=== PATIENT | female | born 1960 | race Caucasian/White ===

== ENCOUNTER 2020-06-16 07:49 | Day surgery (SDC) | payer OTHER ==
--- OUTSIDE RECORDS SUMMARY | 2020-06-09 13:49 | XMS ---
:1960 Author Organization [facility] Team Providers Name Role Phone Ringstad, Andree Unavailable Unavailable Ringstad, Andree Unavailable Unavailable Ringstad, Andree Unavailable Unavailable Ringstad, Andree Unavailable Unavailable Ringstad, Andree Unavailable Unavailable Ringstad, Andree Unavailable Unavailable Ringstad, Andree Unavailable Unavailable Ringstad, Andree Unavailable Unavailable Ringstad, Andree Unavailable Unavailable Ringstad, Andree Unavailable Unavailable Ringstad, Andree Unavailable Unavailable Daniel Cuba Unavailable [phone] ED STAFF PHYSICIAN, STAFF Unavailable Unavailable MD LIANA RAI Unavailable MD LIANA RAI Unavailable MD LIANA RAI Unavailable MD LIANA RAI Unavailable MD LIANA RAI Unavailable ED STAFF ROSCOE ARENAS Unavailable Unavailable Coloka-Kump, Rodika DO Unavailable Unavailable Coloka-Kump, Rodika DO Unavailable Unavailable Coloka-Kump, Rodika DO Unavailable Unavailable Coloka-Kump, Rodika DO Unavailable Unavailable Coloka-Kump, Rodika DO Unavailable Unavailable Coloka-Kump, Rodika DO Unavailable Unavailable Coloka-Kump, Rodika DO Unavailable Unavailable Coloka-Kump, Rodika DO Unavailable Unavailable Coloka-Kump, Rodika DO Unavailable Unavailable Coloka-Kump, Rodika DO Unavailable Unavailable Coloka-Kump, Rodika DO Unavailable Unavailable Coloka-Kump, Rodika DO Unavailable Unavailable Coloka-Kump, Rodika DO Unavailable Unavailable Coloka-Kump, Rodika DO Unavailable Unavailable Coloka-Kump, Rodika DO Unavailable Unavailable Coloka-Kump, Rodika DO Unavailable Unavailable Coloka-Kump, Rodika DO Unavailable Unavailable Z UNKNOWN PHYSICIAN, SUMIR Unavailable Unavailable Ringstad, Andree Unavailable Unavailable Ringstad, Andree Unavailable Unavailable Ringstad, Andree Unavailable Unavailable Ringstad, Andree Unavailable Unavailable Ringstad, Andree Unavailable Unavailable Ringstad, Andree Unavailable Unavailable Ringstad, Andree Unavailable Unavailable Ringstad, Andree Unavailable Unavailable Ringstad, Andree Unavailable Unavailable Ringstad, Andree Unavailable Unavailable Ringstad, Andree Unavailable Unavailable PRZECHODZKA HARDY, HARDY Unavailable Unavailable MOHSEN, JOAQUÍN DO Unavailable Unavailable MOHSEN, JOAQUÍN DO Unavailable Unavailable MOHSEN, JOAQUÍN DO Unavailable Unavailable MOHSEN, JOAQUÍN DO Unavailable Unavailable Aszalos, Lisa Lexi Unavailable Unavailable Aszalos, Lexi Unavailable Unavailable Aszalos, Lexi Unavailable Unavailable Aszalos, Lexi Unavailable Unavailable Aszalos, Lexi Unavailable Unavailable Aszalos, Lexi Unavailable Unavailable Aszalos, Lexi Unavailable Unavailable Aszalos, Lexi Unavailable Unavailable Aszalos, Lexi Unavailable Unavailable Carol Smith MD Unavailable Unavailable Carol Smith MD Unavailable Unavailable Carol Smith MD Unavailable Unavailable Carol Smith MD Unavailable Unavailable Carol Smith MD Unavailable Unavailable Carol Smith MD Unavailable Unavailable Carol Smith MD Unavailable Unavailable Carol Smith MD Unavailable Unavailable Carol Smith MD Unavailable Unavailable Carol Smith MD Unavailable Unavailable Carol Smith MD Unavailable Unavailable Carol Smith MD Unavailable Unavailable Carol Smith MD Unavailable Unavailable Carol Smith MD Unavailable Unavailable Carol Smith MD Unavailable Unavailable OBINNA EZEQUIEL Unavailable Unavailable Sunitha Unavailable [phone] [place] Unavailable [phone] Aszalos, Lexi Unavailable Unavailable Aszalos, Lexi Unavailable Unavailable Aszalos, Lexi Unavailable Unavailable Aszalos, Lexi Unavailable Unavailable Aszalos, Lexi Unavailable Unavailable Aszalos, Lexi Unavailable Unavailable Aszalos, Lexi Unavailable Unavailable Aszalos, Lexi Unavailable Unavailable Aszalos, Lexi Unavailable Unavailable Luis, Carol MD Unavailable Unavailable Luis, Carol MD Unavailable Unavailable Luis, Carol MD Unavailable Unavailable Luis, Carol MD Unavailable Unavailable Luis, Carol MD Unavailable Unavailable Luis, Carol MD Unavailable Unavailable Luis, Carol MD Unavailable Unavailable Luis, Carol MD Unavailable Unavailable Luis, Carol MD Unavailable Unavailable Luis, Carol MD Unavailable Unavailable Luis, Carol MD Unavailable Unavailable Luis, Carol MD Unavailable Unavailable Luis, Carol MD Unavailable Unavailable Luis, Carol MD Unavailable Unavailable Luis, Carol MD Unavailable Unavailable ZUNASSIGNED Unavailable Unavailable ZUNASSIGNED@, Unavailable Unavailable Re-disclosure Warning The records that you are about to access may contain information from federally- assisted alcohol or drug abuse programs. If such information is present, then the following federally mandated warning applies: This information has been disclosed to you from records protected by federal confidentiality rules (42 CFR part 2). The federal rules prohibit you from making any further disclosure of this information unless further disclosure is expressly permitted by the written consent of the person to whom it pertains or as otherwise permitted by 42 CFR part 2. A general authorization for the release of medical or other information is NOT sufficient for this purpose. The Federal rules restrict any use of the information to criminally investigate or prosecute any alcohol or drug abuse patient.The records that you are about to access may contain highly sensitive health information, the redisclosure of which is protected by Article 27-F of the [facility] Public Health law. If you continue you may haveaccess to information: Regarding HIV / AIDS; Provided by facilities licensed or operated by the [facility] Office of Mental Health; or Provided by the [facility] Office for People With Developmental Disabilities. If such information is present, then the following [facility] mandated warning applies: This information has been disclosed to you from confidential records which are protected by state law. State law prohibits you from making any further disclosure of this information without the specific written consent of the person to whom it pertains, or as otherwise permitted by law. Any unauthorized further disclosure in violation of state law may result in a fine or care home sentence or both. A general authorization for the release of medical or other information is NOT sufficient authorization for further disclosure. Family History Family Member Family Member Family Member Date of Description Data Source(s) Name Gender Status Status Unknown Female Problem 04/08/2013 ELIA ([facility] ([facility]) 12:00:00 AM Health system EDT Center) Encounters Encounter Providers Location Date Indications Data Source(s ) Outpatient Attender: 06[facility]14/2020 [facility] ZUNASSIGNEDAdmitt 10:44:00 Medical Center er: AM EDT ZUNASSIGNEDReferr er: [id number] ZUNASSIGNED@, Outpatient Admitter: [id number] 06/14/2020 [facility] MONTALVOIGNED@,Refe 12:00:[address] [facility] rrer: [id number] AM EDT ZUNASSIGNED@, Attender: [facility] 05/29/2020 10:03:00 AM EDT Attender: [facility] 01:07:00 [facility] Medic al PM EDT - Center) 05/24/2020 01:07:00 PM EDT Outpatient Attender: 05/23/2020 [facility] KATIAIGNEDAdmitt 09:03:00 Medical Center er: AM EDT ZUNASSIGNEDReferr er: [id number] ZUNASSIGNED@, Outpatient Attender: Jennifer Briones 05/23/2020 [facility] 08:38:[address] [facility] MDAttender: AM EDT Rodika Coloka-Kump DOAdmitter: Jennifer Smith MDReferrer: Rodika Coloka-Kump DO OutpatientOFFICE/ Attender: [facility] V[facility], [facility] 08:38:00 [facility] EST AM EDT - Center) 05/23/2020 08:38:00 AM EDT Outpatient Admitter: [id number] 05/23/2020 Betty ale CHRISTIAN@,Refe 12:00:00 Medical Center rrer: [id number] AM EDT ZUNASSIGNED@, Outpatient Attender: Lisa Briones 04/10/2020 Toledoharika meza AszalosAdmitter: 09:49:00 Medical Center [facility] AM EDT AszalosReferrer: Lisa Bay OutpatientOFFICE/ Attender: [facility] 04/10/2020 [facility] ([facility] OUTPATIENT VISIT, [facility] 09:49:00 [facility] Medical EST AM EDT - Center) 04/10/2020 09:49:00 AM EDT Outpatient 04/10/2020 [facility] 08:55:00 Medical [place] AM EDT Outpatient 04/10/2020 [facility] 12:00:00 Medical [place] AM EDT Outpatient 04/05/2020 [facility] 11:48:00 Medical [place] AM EDT Outpatient Attender: Na Briones 04/05/2020 [facility]uilera Coloka-Kump 08:24:00 Medical Fozia barbosa DOAdmitter: AM EDT Na Coloka-Kump DOReferrer: Na Coloka-Kump DO OutpatientOFFICE/ Attender: [facility] 04/05/2020 [facility] ([facility] OUTPATIENT VISIT, [facility] 08:24:00 [facility] Medical EST AM EDT - Center) 04/05/2020 08:24:00 AM EDT Outpatient 04/05/2020 [facility] 12:00:00 Medical [place] AM EDT Outpatient Attender: HARDY Briones 02/25/2020 [facility]uilera PRZECHODPEE 08:21:00 Medical Fozia barbosa DANUTAAdmitter: AM EDT HARDY PRZECHODZKA DANUTAReferrer: GERI COKER PHYSICIAN Attender: [facility] 09/28/2019 NEXT N ([facility] 12:06:00 [facility] PM EST - Center) 09/28/2019 12:06:00 PM EST Outpatient Attender: HARDY Briones 09/10/2019 [facility] Betty aguilera PRZECHODPEE 09:00:00 Medical Cente r DANUTAAdmitter: AM EST HARDY PRZECHODZKA DANUTAReferrer: JOAQUÍN CONNOLLY DO Attender: [facility] 08/26/2019 ELIA N ([facility] 11:28:00 [facility] AM EST - Center) 08/26/2019 11:28:00 AM EST Outpatient Attender: HARDY Briones 08/26/2019 [facility] Betty jimenes MONE 11:10:00 Medical [facility] r DANUTAAdmitter: AM EST HARDY MONE DANUTAReferrer: JOAQUÍN CONNOLLY DO Outpatient Attender: EZEQUIEL Briones 08/17/2019 [facility] Guicho bruce OBINNA 02:12:00 Medical Center MINALAdmitter: PM EST EZEQUIEL OBINNA MINALReferrer: EZEQUIEL YEBOAH EZEQUIEL Attender: [facility] 08/17/2019 NEXT GEN ([facility] 02:12:00 [facility] PM EST - Center) 08/17/2019 02:12:00 PM EST Outpatient 08/17/2019 [facility] 11:18:00 Medical [place] AM EST Outpatient 08/17/2019 [facility] 12:00:00 Medical [place] AM EST Attender: [facility] 08/13/2019 [facility] EST - Center) 08/13/2019 11:30:00 AM EST Emergency Attender: ROSCOE Briones 08/10/2019 [facility] ED STAFF 05:00:00 [facility] PHYSICIANAttender PM EST - : STAFF ED STAFF 08/10/2019 PHYSICIANAdmitter 08:39:00 : ROSCOE ED STAFF PM EST PHYSICIAN Patient discharged. Outpatient 08/10/2019 [facility] 03:54:00 PM EST Medical C enter Outpatient 08/10/2019 [facility] 12:00:00 AM EST Medical C enter Attender: [facility] 07/16/2019 NEXTGE N ([facility] PR[facility]O [place] 03:13:00 PM EST [facility] 07/16/2019 Center) 03:13:00 PM EST Attender: [facility] 05/13/2019 NEXTGE N ([facility] [place] 09:53:00 AM EDT [facility] 05/13/2019 Center) 09:53:00 AM EDT Attender: [facility] 05/05/2019 NEXTGE N ([facility] [place] 09:42:00 AM EDT [facility] 05/05/2019 Center) 09:42:00 AM EDT Attender: [facility] 04/29/2019 NEXTGEN (Sa int [facility] 04:43:00 PM EDT - [facility] 04/29/2019 Center) 04:43:00 PM EDT Outpatient Attender: H 04/27/2019 [facility] Andree 02:33:00 PM EDT Medical C enter RingstadAdmitter: Andree Maganaeferrer: Andree Bernardo OutpatientOFFICE/OU Attender: [facility] 04/27/2019 NEXTGEN ([facility] TPATIENT VISIT, [facility] Center 02:33:00 PM EDT [facility] 04/27/2019 Center) 02:33:00 PM EDT Outpatient 04/27/2019 [facility] 09:53:00 AM EDT Medical C enter Outpatient 04/27/2019 [facility] 12:00:00 AM EDT Medical C enter Emergency H 04/24/2019 [facility] 09:03:00 AM EDT - [facility] 04/24/2019 02:50:00 PM EDT Patient discharged. 04/24/2019 12:00:00 AM EDT - 013 12:00:00 [facility] AM EST Immunizations Vaccine Date Status Description Data Source(s) New in 2011. IIV4 05/23/2020 completed Influenza, Injectable, NEXTGEN ([facility] 12:00:00 AM EDT Quadrivalent [facility]) Source: New Immunization Record pneumococcal 04/10/2020 completed Adult Pneumococcal NEXTGEN ( [facility] polysaccharide PPV23 12:00:00 AM EDT [facility]) Source: New Immunization Record Medications Medication Brand Start Product Dose Route Administrative [facility] Indications Reaction Description Data Name Date Form Instructions Instructions Source(s) Ibuprofen IBUPRO 05/29/ active TAKE 1 NE XTGEN 400 MG Oral FEN 2020 TABLET BY (Sa int Tablet 400MG 12:00: MOUTH EVERY Gu[facility] ephs IBUPROFEN TABLET 00 AM 4 TO 6 HOURS Medical 400MG S EDT NEEDED Center) TABLETS Ibuprofen IBUPRO 05/29/ complet TAKE 1 N EXTGEN 400 MG Oral FEN 2020 ed TABLET BY (Sa int Tablet 400MG 12:00: MOUTH EVERY Guicho ephs IBUPROFEN TABLET 00 AM 4 TO 6 HOURS Medical 400MG S EDT NEEDED Center) TABLETS Medication administered onsite Ibuprofen 400 ibuprofen 400 05/25/2020 1.00 ORAL completed take 1 NEXTGEN MG Oral mg tablet 12:00:00 AM {tablet} t ablet by ( Tablet EDT oral Marly ibuprofen 400 route Medic al mg tablet every 4 - Cente r) 6 hours as needed Meclizine meclizine 25 05/24/2020 1.00 ORAL active take 1 NEXTGEN Hydrochloride mg tablet 12:00:00 AM {tablet} tablet by ([facility] 25 MG Oral EDT oral Marly Tablet route 3 Medical meclizine 25 times Center ) mg tablet every day as needed Chlorthalidon chlorthalidon 05/24/2020 active TAKE 1 NEXTGEN e 25 MG Oral e 25 mg 12:00:00 AM TA BLET ( Tablet tablet EDT (25MG) BY Clement shabazz chlorthalidon ORAL Medica l e 25 mg ROUTE Center) tablet EVERY DAY Lisinopril 10 lisinopril 10 05/24/2020 1.00 ORAL active take 1 NEXTGEN MG Oral mg tablet 12:00:00 AM {tablet} t ablet by ( Tablet EDT oral Marly lisinopril 10 route Medic al mg tablet every day Cente r) Aspirin 81 MG aspirin 81 mg 05/24/2020 1.00 ORAL active take 1 NEXTGEN Delayed tablet,delaye 12:00:00 AM {tablet} tablet by ([facility] Release Oral d release EDT oral Betty sephs Tablet route Medical aspirin 81 mg every day C enter) tablet,delaye d release Shingrix (PF) 0.5 ML 04/10/2020 0.50 mL INTRAMU active 0.5 ML NEXTGEN 50 mcg/0.5 mL varicella 12:00:00 AM SCULAR varicella ( intramuscular zoster virus EDT zos ter Marly suspension, glycoprotein virus Medical kit E, glycoprot Center) recombinant ein E, 0.1 MG/ML recombina Injection nt 0.1 MG/ML Injection [Shingrix ] Chlorthalidon chlorthalidon 04/05/2020 completed TAKE 1 NEXTGEN e 25 MG Oral e 25 mg 12:00:00 AM TA BLET (Saint Tablet tablet EDT (25MG) BY Clement shabazz chlorthalidon ORAL Medica l e 25 mg ROUTE Center) tablet EVERY DAY Lisinopril 10 lisinopril 10 04/05/2020 1.00 ORAL completed take 1 NEXTGEN MG Oral mg tablet 12:00:00 AM {tablet} t ablet by (Saint Tablet EDT oral Marly lisinopril 10 route Medic al mg tablet every day Cente r) Meclizine meclizine 25 04/05/2020 1.00 ORAL completed take 1 NEXTGEN Hydrochloride mg tablet 12:00:00 AM {tablet} tablet by ([facility] 25 MG Oral EDT oral [facility] [place] [facility] mg tablet every day as needed Enalapril enalapril 04/27/2019 completed TAKE 1 NEXTGEN Maleate 10 MG maleate 10 mg 12:00:00 AM TABLET ([facility] Oral Tablet tablet EDT (10MG) BY Lory dunn enalapril ORAL Medical maleate 10 mg ROUTE Cente r) tablet EVERY DAY Chlorthalidon chlorthalidon 04/27/2019 completed TAKE 1 NEXTGEN e 25 MG Oral e 25 mg 12:00:00 AM TA BLET (Saint Tablet tablet EDT (25MG) BY Clement shabazz chlorthalidon ORAL Medica l e 25 mg ROUTE Center) tablet EVERY DAY Meclizine meclizine 04/27/2019 1 ORAL completed take 1 NEXTGEN Hydrochloride 12.5 mg 12:00:00 AM {tablet} tablet by ([facility] 12.5 MG Oral tablet EDT oral Patrick hs Tablet route [facility] [place]) 12.5 mg every day tablet as needed Meclizine meclizine 01/21/2019 2.00 ORAL completed take 2 NEXTGEN Hydrochloride 12.5 mg 12:00:00 AM {tbl} tablet by ([facility] 12.5 MG Oral tablet EDT oral Patrick hs [facility] 12.5 mg every day tablet as needed Chlorthalidon chlorthalidon 08/27/2018 completed TAKE 1 NEXTGEN e 25 MG Oral e 25 mg 12:00:00 AM TA BLET ([facility] Tablet tablet EST (25MG) BY Clement shabazz chlorthalidon ORAL Medica l e 25 mg ROUTE Center) tablet EVERY DAY Aspirin 81 MG aspirin 81 mg 08/27/2018 1.00 ORAL completed take 1 NEXTGEN Delayed tablet,delaye 12:00:00 AM {tablet} tablet by ([facility] Release Oral d release EST oral Betty sephs Tablet route Medical aspirin 81 mg every day C enter) tablet,delaye d release Enalapril enalapril 08/27/2018 completed TAKE 1 NEXTGEN Maleate 10 MG maleate 10 mg 12:00:00 AM TABLET ( Oral Tablet tablet EST (10MG) BY Lory dunn enalapril ORAL Medical maleate 10 mg ROUTE Cente r) tablet EVERY DAY Ibuprofen 400 ibuprofen 400 03/30/2018 1.00 ORAL completed take 1 NEXTGEN MG Oral mg tablet 12:00:00 AM {tablet} t ablet by (Saint Tablet EDT oral Marly ibuprofen 400 route Medic al mg tablet every 4 - Cente r) 6 hours as needed Insurance Providers Payer name Policy type Policy ID Covered Covered alliance party's Policy P mike / Coverage alliance party ID relationship to Siegel Inf ormation type siegel AETNA [id number] self [id number] LOCAL [id number] O [id number] 01 [id number] GREAT [id number] SP [id number] [facility] [id number] O [id number] BENEFITS FUND STRATEGIC O [id number] COMP KAYLEEN O NA 01 NA RESIDENTIAL LOCAL [id number] O [id number] 01 [id number] O [id number] 01 [id number] BENEFITS FUND LOCAL 1199 O [id number] 01 [id number] Dental [id number] S [id number] [place]-I PPO / Preffered Plus [id number] SEIU [id number] S [id number] Home Care Benefit Fund Problems, Conditions, and Diagnoses Code Display Name Description Problem Type Effective Data Dates Source(s) M25.511 Pain in right PAIN IN RIGHT Diagnosis 05/23/2020 [facility] jimeness shoulder SHOULDER 08:38:00 AM Medical EDT Center Z23 Encounter for ENCOUNTER FOR Diagnosis 05/23/2020 [facility] jimeness immunization IMMUNIZATION 08:38:00 AM Medical EDT Center Z12.11 Encounter for ENCOUNTER FOR Diagnosis 05/23/2020 [facility] jimeness screening for SCREENING FOR 08:38:00 AM Medical malignant neoplasm MALIGNANT NEOPLASM EDT Center of colon OF COLON E11.9 Type 2 diabetes TYPE 2 DIABETES Diagnosis 05/23/2020 [facility] mellitus without MELLITUS WITHOUT 08:38:00 AM M edical complications COMPLICATIONS EDT Center I10 Essential ESSENTIAL Diagnosis 05/23/2020 [facility] (primary) (PRIMARY) 08:38:00 AM Medical hypertension HYPERTENSION EDT Center Z12.31 Encounter for ENCNTR SCREEN Diagnosis 05/23/2020 [facility] aguilera screening MAMMOGRAM FOR 08:38:00 AM Medical mammogram for MALIGNANT NEOPLASM EDT José Miguel ter malignant neoplasm OF BREAST of breast E66.9 Obesity, OBESITY, Diagnosis 04/10/2020 [facility] unspecified UNSPECIFIED 09:49:00 AM Medical EDT Center R42 Dizziness and DIZZINESS AND Diagnosis 04/10/2020 [facility] jimeness giddiness GIDDINESS 09:49:00 AM Medical EDT Center Z71.89 Other specified OTHER SPECIFIED Diagnosis 04/05/2020 [facility] counseling COUNSELING 08:24:00 AM Medical EDT Center M54.42 Lumbago with LUMBAGO WITH Diagnosis 02/25/2020 [facility] phs sciatica, left SCIATICA, LEFT 08:21:00 AM Medic al side SIDE EDT Center M54.41 Lumbago with LUMBAGO WITH Diagnosis 02/25/2020 [facility] ph[facility] sciatica, right SCIATICA, RIGHT 08:21:00 AM Med ical side SIDE EDT Center M54.5 Low back pain LOW BACK PAIN Diagnosis 02/25/2020 [facility] jimeness 08:21:00 AM Medical EDT Center Y99.0 Civilian activity CIVILIAN ACTIVITY Diagnosis 08/10/2019 [facility] done for income or DONE FOR INCOME OR 05:00:00 PM Medical pay PAY EST Center Y92.69 Other specified OTH INDUSTRIAL AND Diagnosis 08/10/2019 S ai Marly industrial and CONSTRUCTION AREA 05:00:00 PM [facility] construction area PLACE EST Center as the place of occurrence of the external cause Y93.9 Activity, ACTIVITY, Diagnosis 08/10/2019 [facility] unspecified UNSPECIFIED 05:00:00 PM Medical EST Center X58.XXXA Exposure to other EXPOSURE TO OTHER Diagnosis 08/10/2019 [facility] Vaughans specified factors, SPECIFIED FACTORS, 05:00:00 PM Medical initial encounter INITIAL ENCOUNTER EST Center S46.911A Strain of STRAIN UNSP Diagnosis 08/10/2019 [facility] unspecified MUSC/FASC/TEND AT 05:00:00 PM Medic al muscle, fascia and SHLDR/UP ARM, EST José Miguel ter tendon at shoulder RIGHT ARM, INIT and upper arm level, right arm, initial encounter M25.519 Pain in PAIN IN Diagnosis 08/10/2019 [facility] unspecified UNSPECIFIED 05:00:00 PM Medical shoulder SHOULDER EST Center Z71.3 Dietary counseling DIETARY COUNSELING Diagnosis 9 [facility] Marly and surveillance AND SURVEILLANCE 02:33:00 PM edical EDT Center R73.03 Prediabetes PREDIABETES Diagnosis 04/27/2019 [facility] Vaughan s 02:33:00 PM Medical EDT Center Z68.33 Body mass index BODY MASS INDEX Diagnosis 04/27/2019 Lalitatrisha Luke (BMI) 33.0-33.9, (BMI) 33.0-33.9, 02:33:00 PM edical adult ADULT EDT Center A88.1 Epidemic vertigo EPIDEMIC VERTIGO Diagnosis 04/24/2019 Sa haro Malry 09:03:00 AM Medical EDT Center R11.0 Nausea NAUSEA Diagnosis 04/24/2019 [facility] 09:03:00 AM Medical EDT Center Surgeries/Procedures Procedure Description Date Indications Data Source(s) OFFICE/OUTPATIENT VISIT, 05/23/2020 NEX TGEN ([facility] EST 12:00:00 AM EDT [facility] - 05/23/2020 Center) 12:00:00 AM EDT Influenza, Injectable, 3 05/23/2020 NEX TGEN ([facility] Yrs Or Older 12:00:00 AM EDT [facility] - 05/23/2020 [place]) 12:00:00 AM EDT Immunization 05/23/2020 NEXTGEN ([facility] Administration 12:00:00 AM EDT [facility] - 05/23/2020 Center) 12:00:00 AM EDT OFFICE/OUTPATIENT VISIT, 04/10/2020 NEX TGEN ([facility] EST 12:00:00 AM EDT [facility] - 04/10/2020 Center) 12:00:00 AM EDT Pneumonia Vaccine 04/10/2020 NEXTGEN (S aint 12:00:00 AM EDT [facility] - 04/10/2020 [place]) 12:00:00 AM EDT Immunization 04/10/2020 NEXTGEN ([facility] Administration 12:00:00 AM EDT [facility] dical - 04/10/2020 [place]) 12:00:00 AM EDT OFFICE/OUTPATIENT VISIT, 04/05/2020 NEX TGEN ([facility] EST 12:00:00 AM EDT [facility] - 04/05/2020 Center) 12:00:00 AM EDT ROUTINE VENIPUNCTURE 04/05/2020 NEXTGEN ([facility] 12:00:00 AM EDT [facility] - 04/05/2020 [place]) 12:00:00 AM EDT OFFICE/OUTPATIENT VISIT, 04/27/2019 NEX TGEN ([facility] EST 12:00:00 AM EDT [facility] - 04/27/2019 [place]) 12:00:00 AM EDT Results ID Date Data Source Liver 05/23/2020 11:01:00 AM EDT [facility] [id number] Name Value Range Interpretation Description Data Sup porting Code Source(s) Document(s ) Alkaline 38-126 Above high <content [facility] phosphatase normal styleCode="Bold"> [facility] [Enzymatic Alkaline Medical activity/volume] Phosphatase (ALP) Cente r in Serum or Plasma </content>128 IU/L H<content styleCode="Italic s"> (38-126 IU/L)</content> Albumin 3.5-5.0 <content [facility] [Mass/volume] in styleCode="Bold"> [facility] hs Serum or Plasma Albumin Medical </content>4.4 Center G/DL<content styleCode="Italic s"> (3.5-5.0 G/DL)</content> Alanine 7-30 Above high <content [facility] aminotransferase normal styleCode="Bold"> [facility] [Enzymatic Alanine Medical activity/volume] Aminotransferase Center in Serum or Plasma (ALT) </content>53 IU/L H<content styleCode="Italic s"> (7-30 IU/L)</content> Aspartate 14-36 Above high <content [facility] aminotransferase normal styleCode="Bold"> [facility] [Enzymatic Aspartate Medical activity/volume] Aminotransferase Center in Serum or Plasma (AST) </content>37 IU/L H<content styleCode="Italic s"> (14-36 IU/L)</content> Bilirubin.total 0.2-1.3 <content [facility] [Mass/volume] in styleCode="Bold"> [facility] hs Serum or Plasma Bilirubin Total Medical </content>0.3 Center MG/DL<content styleCode="Italic s"> (0.2-1.3 MG/DL)</content> ID Date Data Source HematologyRou.[id number] 05/23/2020 11:01:00 AM EDT [facility] 0400 Name Value Range Interpretation Description Data Sup porting Code Source(s) Document(s ) Hematocrit 36.0-46. <content [facility] [Volume 0 styleCode="Bold Marly Fraction] of ">Hematocrit Medical Blood by </content>42.6 Center Automated count %<content styleCode="Ital ics"> (36.0-46.0 %)</content> Leukocytes 4.4-11.0 <content [facility] [#/volume] in styleCode="Bold Marly Blood by ">White Blood Medical Automated count Cell Count Center </content>9.01 KCUMM<content styleCode="Ital ics"> (4.4-11.0 KCUMM)</content > Erythrocytes 4.0-5.1 <content [facility] [#/volume] in styleCode="Bold Marly Blood by ">Red Blood Medical Automated count Cell Count Center </content>4.62 MCUMM<content styleCode="Ital ics"> (4.0-5.1 MCUMM)</content > Hemoglobin 12.3-16. <content [facility] [Mass/volume] in 0 styleCode="Bold Marly Blood ">Hemoglobin Medical </content>14.4 Center G/DL<content styleCode="Ital ics"> (12.3-16.0 G/DL)</content> Erythrocyte mean 80.0-100 <content [facility] corpuscular .0 styleCode="Bold Marly volume [Entitic ">Mean Medical volume] by Corpuscular Center Automated count Volume </content>92.2 FL<content styleCode="Ital ics"> (80.0-100.0 FL)</content> Erythrocyte mean 32.0-37. <content [facility] corpuscular 0 styleCode="Bold Marly hemoglobin ">Mean Corpus. Medical concentration Hgb Center [Mass/volume] by Concentration Automated count (MCHC) </content>33.8 G/DL<content styleCode="Ital ics"> (32.0-37.0 G/DL)</content> Erythrocyte 11.5-14. <content [facility] distribution 5 styleCode="Bold Marly width [Ratio] by ">Red Cell Medical Automated count Distribution Center Width </content>13.3 %<content styleCode="Ital ics"> (11.5-14.5 %)</content> Platelet mean 8.0-11.0 <content [facility] volume [Entitic styleCode="Bold Marly volume] in Blood ">Mean Platelet Medical by Automated Volume Center count </content>10.6 FL<content styleCode="Ital ics"> (8.0-11.0 FL)</content> Platelets 130-400 <content [facility] [#/volume] in styleCode="Bold Marly Blood by ">Platelet Medical Automated count Count Center </content>305 KCUMM<content styleCode="Ital ics"> (130-400 KCUMM)</content > Erythrocyte mean 26.0-34. <content [facility] corpuscular 0 styleCode="Bold Marly hemoglobin ">Mean Medical [Entitic mass] Corposcular Center by Automated Hemoglobin count </content>31.2 PG<content styleCode="Ital ics"> (26.0-34.0 PG)</content> UNK 1.6-7.3 <content [facility] styleCode="Bold Marly ">Neutrophil Medical Count Center </content>5.54 KCUMM<content styleCode="Ital ics"> (1.6-7.3 KCUMM)</content > Monocytes 3.0-10.0 <content [facility] [#/volume] in styleCode="Bold Marly Blood by ">Monocyte Medical Automated count </content>6.5 Center %<content styleCode="Ital ics"> (3.0-10.0 %)</content> UNK 1.0-4.8 <content [facility] styleCode="Bold Marly ">Lymphocyte Medical Count Center </content>2.59 KCUMM<content styleCode="Ital ics"> (1.0-4.8 KCUMM)</content > Neutrophils 36-66 <content [facility] [#/volume] in styleCode="Bold Marly Blood by ">Neutrophil Medical Automated count </content>61.5 Center %<content styleCode="Ital ics"> (36-66 %)</content> Lymphocytes 24.0-44. <content [facility] [#/volume] in 0 styleCode="Bold Marly Blood by ">Lymphocyte Medical Automated count </content>28.7 Center %<content styleCode="Ital ics"> (24.0-44.0 %)</content> Eosinophils 0-5.0 <content [facility] [#/volume] in styleCode="Bold Marly Blood by ">Eosinophil Medical Automated count </content>1.7 Center %<content styleCode="Ital ics"> (0-5.0 %)</content> UNK 0.0-0.6 <content [facility] styleCode="Bold Marly ">Eosinophil Medical Count Center </content>0.15 KCUMM<content styleCode="Ital ics"> (0.0-0.6 KCUMM)</content > UNK 0.2-0.9 <content [facility] styleCode="Bold Marly ">Monocyte Medical Count Center </content>0.59 KCUMM<content styleCode="Ital ics"> (0.2-0.9 KCUMM)</content > Basophils 0.0-1.0 <content [facility] [#/volume] in styleCode="Bold Marly Blood by ">Basophil Medical Automated count </content>1.0 Center %<content styleCode="Ital ics"> (0.0-1.0 %)</content> UNK 0.0 <content [facility] styleCode="Bold Marly ">Nucleated Red Medical Blood Cell Center Count </content>0.00 KCUMM<content styleCode="Ital ics"> (0.0 KCUMM)</content > UNK 0-0.1 <content [facility] styleCode="Bold Marly ">Immature Medical Granulocyte Center Count </content>0.05 KCUMM<content styleCode="Ital ics"> (0-0.1 KCUMM)</content > UNK 0 <content Saint styleCode="Bold Marly ">Nucleated Red Medical Blood Cell Center </content>0.0 /100<content styleCode="Ital ics"> (0 /100)</content> UNK 0.0-0.3 <content Saint styleCode="Bold Amrly ">Basophil Medical Count Center </content>0.09 KCUMM<content styleCode="Ital ics"> (0.0-0.3 KCUMM)</content > UNK < 1 <content Saint styleCode="Bold Marly ">Immature Medical Granulocyte Center Ratio </content>0.6 %<content styleCode="Ital ics"> (< 1 %)</content> ID Date Data Source GFR(Creatinine).[id number] 05/23/2020 11:01:00 AM EDT [facility] 0-0400 Name Value Range Interpretation Code Description Data Diann rce(s) Supporting Document(s ) UNK > 60 <content [facility] styleCode="Bold"> Medical Cent er EGFR </content>79 GFR<content styleCode="Italic s"> (> 60 GFR)</content> ID Date Data Source CHMROUTINECCDA.[id number] 05/23/2020 11:01:00 AM EDT [facility] -0400 Name Value Range Interpretation Description Data Sup porting Code Source(s) Document(s ) UNK 2.3-3.5 <content [facility] styleCode="Bold Medical ">Globulin Center </content>3.1 G/DL<content styleCode="Ital ics"> (2.3-3.5 G/DL)</content> Protein 6.3-8.2 <content [facility] [Mass/volum styleCode="Bold Medical e] in Serum ">Total Protein Center or Plasma </content>7.5 G/DL<content styleCode="Ital ics"> (6.3-8.2 G/DL)</content> UNK >= 1.0 <content [facility] styleCode="Bold Medical ">AG Ratio Center </content>1.4 <content styleCode="Ital ics"> (>= 1.0 )</content> ID Date Data Source [facility].[id number] 05/23/2020 11:01:00 AM EDT [facility] Name Value Range Interpretation Description Data Sup porting Code Source(s) Document(s ) Creatinine 0.5-1.3 <content [facility] [Mass/volume] in styleCode="Bold"> [facility] hs Serum or Plasma Creatinine Medical </content>0.8 Center MG/DL<content styleCode="Italic s"> (0.5-1.3 MG/DL)</content> Potassium 3.5-5.3 <content [facility] [Moles/volume] in styleCode="Bold"> [facility] Serum or Plasma Potassium Medical </content>4.0 Center MEQ/L<content styleCode="Italic s"> (3.5-5.3 MEQ/L)</content> Sodium 137-145 <content [facility] [Moles/volume] in styleCode="Bold"> [facility] Serum or Plasma Sodium Medical </content>138 Center MEQ/L<content styleCode="Italic s"> (137-145 MEQ/L)</content> UNK 7-17 Above high <content [facility] normal styleCode="Bold"> [facility] BUN </content>25 Medical MG/DL H<content Center styleCode="Italic s"> (7-17 MG/DL)</content> Chloride 98-107 <content [facility] [Moles/volume] in styleCode="Bold"> [facility] Serum or Plasma Chloride Medical </content>100 Center MEQ/L<content styleCode="Italic s"> (98-107 MEQ/L)</content> Carbon dioxide, 22-30 Above high <content [facility] total normal styleCode="Bold"> [facility] [Moles/volume] in Carbon Dioxide Medical Serum or Plasma </content>34 Center MEQ/L H<content styleCode="Italic s"> (22-30 MEQ/L)</content> Calcium 8.4-10. Above high <content [facility] [Mass/volume] in 2 normal styleCode="Bold"> [facility] hs Serum or Plasma Calcium Medical </content>10.3 Center MG/DL H<content styleCode="Italic s"> (8.4-10.2 MG/DL)</content> Glucose 74-106 Above high <content [facility] [Mass/volume] in normal styleCode="Bold"> [facility] hs Serum or Plasma Glucose Medical </content>121 Center MG/DL H<content styleCode="Italic s"> (74-106 MG/DL)</content> UNK > 60 <content [facility] styleCode="Bold"> [facility] EGFR </content>79 Medical GFR<content Center styleCode="Italic s"> (> 60 GFR)</content> Alkaline 38-126 Above high <content [facility] phosphatase normal styleCode="Bold"> [facility] [Enzymatic Alkaline Medical activity/volume] Phosphatase (ALP) Cente r in Serum or Plasma </content>128 IU/L H<content styleCode="Italic s"> (38-126 IU/L)</content> Bilirubin.total 0.2-1.3 <content [facility] [Mass/volume] in styleCode="Bold"> [facility] hs Serum or Plasma Bilirubin Total Medical </content>0.3 Center MG/DL<content styleCode="Italic s"> (0.2-1.3 MG/DL)</content> Alanine 7-30 Above high <content [facility] aminotransferase normal styleCode="Bold"> [facility] hs [Enzymatic Alanine Medical activity/volume] Aminotransferase Center in Serum or Plasma (ALT) </content>53 IU/L H<content styleCode="Italic s"> (7-30 IU/L)</content> Aspartate 14-36 Above high <content [facility] aminotransferase normal styleCode="Bold"> [facility] hs [Enzymatic Aspartate Medical activity/volume] Aminotransferase Center in Serum or Plasma (AST) </content>37 IU/L H<content styleCode="Italic s"> (14-36 IU/L)</content> Albumin 3.5-5.0 <content [facility] [Mass/volume] in styleCode="Bold"> [facility] hs Serum or Plasma Albumin Medical </content>4.4 Center G/DL<content styleCode="Italic s"> (3.5-5.0 G/DL)</content> ID Date Data Source [id number] 05/18/2020 09:11:00 AM EDT [facility] Name Value Range Interpretation Description Data Sup porting Code Source(s) Document(s ) SARS [facility] coronavirus 2 RNA This lab was ordered by AZALIA ABDUL and reported by [facility]. ID Date Data Source [id number] 04/11/2020 05:03:00 PM EDT [facility] Name Value Range Interpretation Code Description Data Diann rce(s) Supporting Document(s ) HOLOGIC [facility] SARS-CoV-2 TMA PCR This lab was ordered by CELESTINE KENE MD and reported by [facility]. ID Date Data Source [id number] 04/10/2020 10:42:10 AM EDT [facility] ([facility] [id number] [place]) Name Value Range Interpretation Code Description Data Diann rce(s) Supporting Document(s ) 164 WHOLE BLOOD [facility] 164 WHOLE BLOOD [facility]) ID Date Data Source [id number] 04/05/2020 10:08:00 AM EDT [facility] ([facility] [id number] [place]) Name Value Range Interpretation Code Description Data Diann rce(s) Supporting Document(s ) 1.05 MIU/L 0.465-4.68 TSH [facility] ([facility]) ID Date Data Source [id number] 04/05/2020 10:08:00 AM EDT [facility] ([facility] [id number] [place]) Name Value Range Interpretation Code Description Data Diann rce(s) Supporting Document(s ) 7.2 % 4.2-5.8 Above high normal HB A1C [facility] ([facility]) ID Date Data Source [id number] 04/05/2020 10:08:00 AM EDT [facility] ([facility] [id number] [place]) Name Value Range Interpretation Code Description Data Diann rce(s) Supporting Document(s ) 47 MG/DL > 60 Below low normal HDL- CHOL [facility] ([facility]) 106 MG/DL < 150 TRIGLYCERIDES [facility] ([facility]) 93 MG/DL < 100 LDL- CALC [facility] ([facility]) 161 MG/DL <200 CHOLESTEROL [facility] ([facility]) ID Date Data Source [id number] 04/05/2020 10:08:00 AM EDT [facility] ([facility] [id number] [place]) Name Value Range Interpretation Code Description Data Supporting Source(s) Document(s ) 140 MEQ/L 137-145 SODIUM [facility] ([facility]) 3.7 MEQ/L 3.5-5.3 POTASSIUM [facility] ([facility]) 106 MEQ/L 98-107 CHLORIDE [facility]) 31 MEQ/L 22-30 Above high normal CARBON DIOXIDE [facility]) 6.7 G/DL 6.3-8.2 TOTAL PROTEIN [facility] ([facility]) 3.6 G/DL 3.5-5.0 ALBUMIN [facility]) 33 IU/L 14-36 AST (GOT) [facility] ([facility]) 1.2 >= 1.0 AG RATIO [facility] ([facility]) 3.1 G/DL 2.3-3.5 GLOBULIN [facility]) 37 IU/L 7-30 Above high normal ALT [facility] ([facility]) 155 IU/L 38-126 Above high normal ALP [facility]) 92 GFR > 60 eGFR [facility]) Estimated GFR is calculated using the Mo dification of Diet in RenalDisease (MDRD) Study equation, and normalized to 1.73m2 body surfce area.The MDRD study equation should only be used in individuals age 18 orolder. It has not been validated f or the following: women,patients with serious comorbid conditions, or on certain medications, orpersons with extremes of body size, muscle mass, or nutritional status. 19 MG/DL 7-17 Above high normal BUN [facility] ([facility]) 0.7 MG/DL 0.5-1.3 CREATININE [facility] ([facility]) 9.3 MG/DL 8.4-10.2 CALCIUM [facility] ([facility]) < 0.2 0.2-1.3 Below low normal BILI, TOTAL [facility] ([facility]) 126 MG/DL 74-106 Above high normal GLUCOSE [facility] ([facility]) ID Date Data Source [id number] 04/05/2020 10:08:00 AM EDT [facility] ([facility] [id number] [place]) Name Value Range Interpretation Code Description Data Diann rce(s) Supporting Document(s ) 161 MG/DL <200 CHOLESTEROL [facility] ([facility]) 106 MG/DL < 150 TRIGLYCERIDES [facility] ([facility]) 47 MG/DL > 60 Below low normal HDL- CHOL [facility] ([facility]) ID Date Data Source [id number] 04/05/2020 10:08:00 AM EDT [facility] ([facility] [id number] [place]) Name Value Range Interpretation Description Data Sup porting Code Source(s) Document(s ) 140 MEQ/L 137-145 SODIUM [facility] ([facility]) 31 MEQ/L 22-30 Above high normal CARBON DIOXIDE [facility] ([facility]) 106 MEQ/L 98-107 CHLORIDE [facility] ([facility]) 6.7 G/DL 6.3-8.2 TOTAL PROTEIN [facility] ([facility]) 3.6 G/DL 3.5-5.0 ALBUMIN [facility] ([facility]) 33 IU/L 14-36 AST (GOT) [facility] ([facility]) 9.3 MG/DL 8.4-10.2 CALCIUM [facility] ([facility]) 37 IU/L 7-30 Above high normal ALT [facility] ([facility]) 155 IU/L 38-126 Above high normal ALP [facility] ([facility]) 19 MG/DL 7-17 Above high normal BUN [facility] ([facility]) 126 MG/DL 74-106 Above high normal GLUCOSE [facility] ([facility]) 0.7 MG/DL 0.5-1.3 CREATININE [facility] ([facility]) ID Date Data Source [id number] 04/05/2020 10:08:00 AM EDT [facility] ([facility] [id number] [place]) Name Value Range Interpretation Code Description Data Diann rce(s) Supporting Document(s ) 4.31 MCUMM 4.0-5.1 RBC [facility] ([facility]) 9.30 KCUMM 4.4-11.0 [facility] 13.3 G/DL 12.3-16.0 HGB [facility] ([facility]) 93.0 FL 80.0-100.0 MCV [facility]) 40.1 % 36.0-46.0 HCT [facility] ([facility]) 30.9 PG 26.0-34.0 [facility] 33.2 G/DL 32.0-37.0 MCHC [facility]) 13.0 % 11.5-14.5 RDW [facility] ([facility]) 11.0 FL 8.0-11.0 MPV [facility] ([facility]) 252 KCUMM 130-400 PLT [facility] ([facility]) 0.0 /100 0 NRBC% [facility] ([facility]) New parameters included in the report o f automated CBCNRBC(%/#) Is a direct count of Nucleated Red Blood cell, and will bereported with every CBC count. WBC will automatically be corrected withthe presence of NRBC. 0.00 KCUMM 0.0 NRBC ABS# [facility] 28.1 % 24.0-44.0 LYMPHOCYTE % [facility] ([facility]) 63.0 % 36-66 NEUTROPHIL % [facility] ([facility]) 5.5 % 3.0-10.0 MONOCYTE % [facility] 0.6 % 0.0-1.0 BASOPHIL % [facility] 2.4 % 0-5.0 EOSINOPHIL % [facility] 5.86 KCUMM 1.6-7.3 NEUTROPHIL ABS# [facility] ([facility]) 2.61 KCUMM 1.0-4.8 LYMPHOCYTE ABS# [facility] ([facility]) 0.06 KCUMM 0.0-0.3 BASOPHIL ABS# [facility] ([facility]) 0.51 KCUMM 0.2-0.9 MONOCYTE ABS# [facility] ([facility]) 0.22 KCUMM 0.0-0.6 EOSINOPHIL ABS# [facility] ([facility]) 0.04 KCUMM 0-0.1 IG ABS# [facility] ([facility]) New parameters included in the report o f automated CBC/DIFF.IG:(%/#) Immature Granulocytes ,includes the presence of (Metamyelocyte,Myelocyte,and Promyelocyte) 0.4 % < 1 IG% [facility] ([facility]) ID Date Data Source [id number] 04/05/2020 10:08:00 AM EDT [facility] ([facility] [id number] [place]) Name Value Range Interpretation Code Description Data Diann rce(s) Supporting Document(s ) 1.17 NG/DL 0.78-2.19 FREE T4 [facility] ([facility]) ID Date Data Source Liver 04/05/2020 10:08:00 AM EDT [facility] Profile.[id number] Name Value Range Interpretation Description Data Sup porting Code Source(s) Document(s ) Aspartate 14-36 <content [facility] aminotransferase styleCode="Bold"> [facility] [Enzymatic Aspartate Medical activity/volume] Aminotransferase Center in Serum or Plasma (AST) </content>33 IU/L<content styleCode="Italic s"> (14-36 IU/L)</content> Alkaline 38-126 Above high <content [facility] phosphatase normal styleCode="Bold"> [facility] [Enzymatic Alkaline Medical activity/volume] Phosphatase (ALP) Cente r in Serum or Plasma </content>155 IU/L H<content styleCode="Italic s"> (38-126 IU/L)</content> Bilirubin.total 0.2-1.3 Below low <content [facility] [Mass/volume] in normal styleCode="Bold"> [facility] Serum or Plasma Bilirubin Total Medical </content>< 0.2 Center MG/DL L<content styleCode="Italic s"> (0.2-1.3 MG/DL)</content> Alanine 7-30 Above high <content [facility] aminotransferase normal styleCode="Bold"> [facility] [Enzymatic Alanine Medical activity/volume] Aminotransferase Center in Serum or Plasma (ALT) </content>37 IU/L H<content styleCode="Italic s"> (7-30 IU/L)</content> Albumin 3.5-5.0 <content [facility] [Mass/volume] in styleCode="Bold"> [facility] hs Serum or Plasma Albumin Medical </content>3.6 Center G/DL<content styleCode="Italic s"> (3.5-5.0 G/DL)</content> ID Date Data Source [id number] 04/05/2020 10:08:00 AM EDT [facility] Center Name Value Range Interpretation Description Data Sup porting Code Source(s) Document(s ) Triglyceride < 150 <content [facility] [Mass/volume] in styleCode="Julio Marly Serum or Plasma d">Triglycerid Medical es Center </content>106 MG/DL<content styleCode="Dominique lics"> (< 150 MG/DL)</conten t> UNK > 60 Below low normal <content [facility] styleCode="Julio Marly d">HDL- Medical Cholesterol Center </content>47 MG/DL L<content styleCode="Dominique lics"> (> 60 MG/DL)</conten t> UNK < 100 <content [facility] styleCode="Julio Marly d">LDL-Cholest Medical stephane Center </content>93 MG/DL<content styleCode="Dominique lics"> (< 100 MG/DL)</conten t> Cholesterol -<200 <content [facility] [Mass/volume] in styleCode="Julio Marly Serum or Plasma d">Cholesterol Medical </content>161 Center MG/DL<content styleCode="Dominique lics"> (-<200 MG/DL)</conten t> ID Date Data Source [id number] 04/05/2020 10:08:00 AM EDT [facility] Name Value Range Interpretation Description Data Sup porting Code Source(s) Document(s ) Thyroxine (T4) 0.78-2.1 <content [facility] free 9 styleCode="Julio Marly [Mass/volume] d">T4 Free Medical in Serum or </content>1.17 Center Plasma NG/DL<content styleCode="Dominique lics"> (0.78-2.19 NG/DL)</conten t> Thyrotropin 0.465-4. <content [facility] [Units/volume] 68 styleCode="Julio Marly in Serum or d">Thyroid Medical Plasma by [facility] Detection Hormone limit <= 0.05 </content>1.05 mIU/L MIU/L<content styleCode="Dominique lics"> (0.465-4.68 MIU/L)</conten t> ID Date Data Source [id number].[id number] 04/05/2020 10:08:00 AM EDT [facility] 0400 Name Value Range Interpretation Description Data Sup porting Code Source(s) Document(s ) Leukocytes 4.4-11.0 <content [facility] [#/volume] in styleCode="Bold Marly Blood by ">White Blood Medical Automated count Cell Count Center </content>9.30 KCUMM<content styleCode="Ital ics"> (4.4-11.0 KCUMM)</content > Erythrocytes 4.0-5.1 <content [facility] [#/volume] in styleCode="Bold Marly Blood by ">Red Blood Medical Automated count Cell Count Center </content>4.31 MCUMM<content styleCode="Ital ics"> (4.0-5.1 MCUMM)</content > Hematocrit 36.0-46. <content [facility] [Volume 0 styleCode="Bold Marly Fraction] of ">Hematocrit Medical Blood by </content>40.1 Center Automated count %<content styleCode="Ital ics"> (36.0-46.0 %)</content> Hemoglobin 12.3-16. <content [facility] [Mass/volume] in 0 styleCode="Bold Marly Blood ">Hemoglobin Medical </content>13.3 Center G/DL<content styleCode="Ital ics"> (12.3-16.0 G/DL)</content> Erythrocyte mean 32.0-37. <content [facility] corpuscular 0 styleCode="Bold Maryl hemoglobin ">Mean Corpus. Medical concentration Hgb Center [Mass/volume] by Concentration Automated count (MCHC) </content>33.2 G/DL<content styleCode="Ital ics"> (32.0-37.0 G/DL)</content> Erythrocyte mean 80.0-100 <content [facility] corpuscular .0 styleCode="Bold Marly volume [Entitic ">Mean Medical volume] by Corpuscular Center Automated count Volume </content>93.0 FL<content styleCode="Ital ics"> (80.0-100.0 FL)</content> Erythrocyte mean 26.0-34. <content [facility] corpuscular 0 styleCode="Bold Marly hemoglobin ">Mean Medical [Entitic mass] Corposcular Center by Automated Hemoglobin count </content>30.9 PG<content styleCode="Ital ics"> (26.0-34.0 PG)</content> Platelet mean 8.0-11.0 <content [facility] volume [Entitic styleCode="Bold Marly volume] in Blood ">Mean Platelet Medical by Automated Volume Center count </content>11.0 FL<content styleCode="Ital ics"> (8.0-11.0 FL)</content> Erythrocyte 11.5-14. <content [facility] distribution 5 styleCode="Bold Marly width [Ratio] by ">Red Cell Medical Automated count Distribution Center Width </content>13.0 %<content styleCode="Ital ics"> (11.5-14.5 %)</content> Platelets 130-400 <content [facility] [#/volume] in styleCode="Bold [facility] Blood by ">Platelet Medical Automated count Count Center </content>252 KCUMM<content styleCode="Ital ics"> (130-400 KCUMM)</content > Lymphocytes 24.0-44. <content [facility] [#/volume] in 0 styleCode="Bold [facility] Blood by ">Lymphocyte Medical Automated count </content>28.1 Center %<content styleCode="Ital ics"> (24.0-44.0 %)</content> Neutrophils 36-66 <content [facility] [#/volume] in styleCode="Bold [facility] Blood by ">Neutrophil Medical Automated count </content>63.0 Center %<content styleCode="Ital ics"> (36-66 %)</content> UNK 1.6-7.3 <content [facility] styleCode="Bold Marly ">Neutrophil Medical Count Center </content>5.86 KCUMM<content styleCode="Ital ics"> (1.6-7.3 KCUMM)</content > Monocytes 3.0-10.0 <content [facility] [#/volume] in styleCode="Bold [facility] Blood by ">Monocyte Medical Automated count </content>5.5 Center %<content styleCode="Ital ics"> (3.0-10.0 %)</content> UNK 1.0-4.8 <content [facility] styleCode="Bold Marly ">Lymphocyte Medical Count Center </content>2.61 KCUMM<content styleCode="Ital ics"> (1.0-4.8 KCUMM)</content > UNK 0.2-0.9 <content [facility] styleCode="Bold Marly ">Monocyte Medical Count Center </content>0.51 KCUMM<content styleCode="Ital ics"> (0.2-0.9 KCUMM)</content > Eosinophils 0-5.0 <content [facility] [#/volume] in styleCode="Bold M[facility] Blood by ">Eosinophil Medical Automated count </content>2.4 Center %<content styleCode="Ital ics"> (0-5.0 %)</content> Basophils 0.0-1.0 <content [facility] [#/volume] in styleCode="Bold [facility] Blood by ">Basophil Medical Automated count </content>0.6 Center %<content styleCode="Ital ics"> (0.0-1.0 %)</content> UNK 0.0-0.6 <content [facility] styleCode="Bold Marly ">Eosinophil Medical Count Center </content>0.22 KCUMM<content styleCode="Ital ics"> (0.0-0.6 KCUMM)</content > UNK 0.0-0.3 <content [facility] styleCode="Bold Marly ">Basophil Medical Count Center </content>0.06 KCUMM<content styleCode="Ital ics"> (0.0-0.3 KCUMM)</content > UNK 0-0.1 <content [facility] styleCode="Bold Marly ">Immature Medical Granulocyte Center Count </content>0.04 KCUMM<content styleCode="Ital ics"> (0-0.1 KCUMM)</content > UNK 0.0 <content [facility] styleCode="Bold Marly ">Nucleated Red Medical Blood Cell Center Count </content>0.00 KCUMM<content styleCode="Ital ics"> (0.0 KCUMM)</content > UNK 0 <content [facility] styleCode="Bold Marly ">Nucleated Red Medical Blood Cell Center </content>0.0 /100<content styleCode="Ital ics"> (0 /100)</content> UNK < 1 <content [facility] styleCode="Bold Marly ">Immature Medical Granulocyte Center Ratio </content>0.4 %<content styleCode="Ital ics"> (< 1 %)</content> ID Date Data Source GFR(Creatinine).[id number] 04/05/2020 10:08:00 AM EDT [facility] 0-0400 Name Value Range Interpretation Code Description Data Diann rce(s) Supporting Document(s ) UNK > 60 <content [facility] styleCode="Bold"> Medical Cent er EGFR </content>92 GFR<content styleCode="Italic s"> (> 60 GFR)</content> ID Date Data Source CHMROUTINECCDA.[id number] 04/05/2020 10:08:00 AM EDT [facility] -0400 Name Value Range Interpretation Description Data Sup porting Code Source(s) Document(s ) UNK 4.2-5.8 Above high normal <content [place] [facility] styleCode="Bold Medical ">Hemoglobin Center A1C </content>7.2 % H<content styleCode="Ital ics"> (4.2-5.8 %)</content> UNK >= 1.0 <content [facility] styleCode="Bold Medical ">AG Ratio Center </content>1.2 <content styleCode="Ital ics"> (>= 1.0 )</content> UNK 2.3-3.5 <content [facility] styleCode="Bold Medical ">Globulin Center </content>3.1 G/DL<content styleCode="Ital ics"> (2.3-3.5 G/DL)</content> Protein 6.3-8.2 <content [facility] [Mass/volum styleCode="Bold Medical e] in Serum ">Total Protein Center or Plasma </content>6.7 G/DL<content styleCode="Ital ics"> (6.3-8.2 G/DL)</content> ID Date Data Source [id number] 04/05/2020 10:08:00 AM EDT [facility] Name Value Range Interpretation Description Data Sup porting Code Source(s) Document(s ) Sodium 137-145 <content [facility] [Moles/volume] in styleCode="Bold"> [facility] Serum or Plasma Sodium Medical </content>140 Center MEQ/L<content styleCode="Italic s"> (137-145 MEQ/L)</content> Potassium 3.5-5.3 <content [facility] [Moles/volume] in styleCode="Bold"> [facility] Serum or Plasma Potassium Medical </content>3.7 Center MEQ/L<content styleCode="Italic s"> (3.5-5.3 MEQ/L)</content> Chloride 98-107 <content [facility] [Moles/volume] in styleCode="Bold"> [facility] Serum or Plasma Chloride Medical </content>106 Center MEQ/L<content styleCode="Italic s"> (98-107 MEQ/L)</content> Carbon dioxide, 22-30 Above high <content [facility] total normal styleCode="Bold"> Marly [Moles/volume] in Carbon Dioxide Medical Serum or Plasma </content>31 Center MEQ/L H<content styleCode="Italic s"> (22-30 MEQ/L)</content> UNK 7-17 Above high <content [facility] normal styleCode="Bold"> Marly BUN </content>19 Medical MG/DL H<content Center styleCode="Italic s"> (7-17 MG/DL)</content> Glucose 74-106 Above high <content [facility] [Mass/volume] in normal styleCode="Bold"> [facility] Serum or Plasma Glucose Medical </content>126 Center MG/DL H<content styleCode="Italic s"> (74-106 MG/DL)</content> Creatinine 0.5-1.3 <content [facility] [Mass/volume] in styleCode="Bold"> [facility] Serum or Plasma Creatinine Medical </content>0.7 Center MG/DL<content styleCode="Italic s"> (0.5-1.3 MG/DL)</content> Calcium 8.4-10. <content [facility] [Mass/volume] in 2 styleCode="Bold"> [facility] Serum or Plasma Calcium Medical </content>9.3 Center MG/DL<content styleCode="Italic s"> (8.4-10.2 MG/DL)</content> UNK > 60 <content [facility] styleCode="Bold"> Marly EGFR </content>92 Medical GFR<content Center styleCode="Italic s"> (> 60 GFR)</content> Aspartate 14-36 <content [facility] aminotransferase styleCode="Bold"> [facility] [Enzymatic Aspartate Medical activity/volume] Aminotransferase Center in Serum or Plasma (AST) </content>33 IU/L<content styleCode="Italic s"> (14-36 IU/L)</content> Alkaline 38-126 Above high <content [facility] phosphatase normal styleCode="Bold"> Marly [Enzymatic Alkaline Medical activity/volume] Phosphatase (ALP) Cente r in Serum or Plasma </content>155 IU/L H<content styleCode="Italic s"> (38-126 IU/L)</content> Alanine 7-30 Above high <content [facility] aminotransferase normal styleCode="Bold"> [facility] [Enzymatic Alanine Medical activity/volume] Aminotransferase Center in Serum or Plasma (ALT) </content>37 IU/L H<content styleCode="Italic s"> (7-30 IU/L)</content> Bilirubin.total 0.2-1.3 Below low <content [facility] [Mass/volume] in normal styleCode="Bold"> [facility] Serum or Plasma Bilirubin Total Medical </content>< 0.2 Center MG/DL L<content styleCode="Italic s"> (0.2-1.3 MG/DL)</content> Albumin 3.5-5.0 <content [facility] [Mass/volume] in styleCode="Bold"> [facility] Serum or Plasma Albumin Medical </content>3.6 Center G/DL<content styleCode="Italic s"> (3.5-5.0 G/DL)</content> ID Date Data Source [id number] 03/21/2020 09:48:00 AM EDT [facility] Name Value Range Interpretation Code Description Data Diann rce(s) Supporting Document(s ) SARS-CoV-2 [facility] , RNA This lab was ordered by CELESTINE KEEN MD and reported by [facility]. ID Date Data Source [id number] 03/14/2020 10:35:00 AM EDT [facility] Name Value Range Interpretation Code Description Data Diann rce(s) Supporting Document(s ) SARS-CoV-2 [facility] , RNA This lab was ordered by CELESTINE KEEN MD and reported by [facility]. ID Date Data Source [id number] 03/07/2020 12:27:00 PM EDT [facility] Name Value Range Interpretation Code Description Data Diann rce(s) Supporting Document(s ) SARS-CoV-2 [facility] , RNA This lab was ordered by CELESTINE KEEN MD and reported by [facility]. ID Date Data Source [id number] 02/29/2020 12:19:00 PM EDT [facility] Name Value Range Interpretation Code Description Data Diann rce(s) Supporting Document(s ) SARS-CoV-2 [facility] , RNA This lab was ordered by CELESTINE KEEN MD and reported by [facility]. ID Date Data Source [id number] 02/22/2020 07:37:00 AM EDT [facility] Name Value Range Interpretation Code Description Data Diann rce(s) Supporting Document(s ) SARS-CoV-2 [facility] , RNA This lab was ordered by CELESTINE KEEN MD and reported by [facility]. ID Date Data Source [id number] 02/15/2020 10:54:00 AM EDT [facility] Name Value Range Interpretation Code Description Data Diann rce(s) Supporting Document(s ) SARS-CoV-2 [facility] , RNA This lab was ordered by CELESTINE KEEN MD and reported by [facility]. ID Date Data Source [id number] 02/08/2020 07:44:00 AM EDT [facility] Name Value Range Interpretation Code Description Data Diann rce(s) Supporting Document(s ) SARS-CoV-2 [facility] , RNA This lab was ordered by [email or web address] and reported by [facility]. ID Date Data Source [id number] 02/01/2020 06:50:00 PM EDT [facility] Name Value Range Interpretation Code Description Data Diann rce(s) Supporting Document(s ) SARS-CoV-2 [facility] , RNA This lab was ordered by [email or web address] and reported by [facility]. ID Date Data Source [id number] 02/01/2020 06:50:00 PM EDT [facility] Name Value Range Interpretation Code Description Data Diann rce(s) Supporting Document(s ) SARS-CoV-2 [facility] , RNA This lab was ordered by [email or web address] and reported by [facility]. ID Date Data Source [id number] 01/27/2020 04:12:00 PM EDT [facility] Name Value Range Interpretation Code Description Data Diann rce(s) Supporting Document(s ) SARS-CoV-2 [facility] , RNA This lab was ordered by [email or web address] and reported by [facility]. ID Date Data Source [id number] 01/25/2020 05:36:00 PM EDT [facility] Name Value Range Interpretation Code Description Data Diann rce(s) Supporting Document(s ) SARS-CoV-2 [facility] , RNA This lab was ordered by [facility] and reported by [employer]. ID Date Data Source Urinalysis.[id number] 04/24/2019 11:33:00 AM EDT [facility] 0 Name Value Range Interpretation Description Data Sup porting Code Source(s) Document(s ) Glucose NEGATIVE <content [facility] [Mass/volume] styleCode="Julio Luke in Urine by d">Urine Medical Test strip Glucose Center </content>NEGA TIVE MG/DL<content styleCode="Dominique lics"> (NEGATIVE MG/DL)</conten t> Color of Urine YELLOW <content [facility] styleCode="[facility] Marly d">Color, Medical Urine Center </content>YELL OW <content styleCode="Dominique lics"> (YELLOW )</content> UNK CLEAR <content [facility] styleCode="Julio Vaughans d">Urine Medical Clarity Center </content>UDAY R <content styleCode="Dominique lics"> (CLEAR )</content> Ketones NEGATIVE <content [facility] [Mass/volume] styleCode="Julio Vaughans in Urine by d">Urine Medical Test strip Ketone Center </content>NEGA TIVE MG/DL<content styleCode="Dominique lics"> (NEGATIVE MG/DL)</conten t> Specific 1.015-1.02 <content [facility] gravity of 5 styleCode="Julio Vaughans Urine by Test d">Urine Medical strip Specific Center [place] </content>1.01 5 <content styleCode="Dominique lics"> (1.015-1.025 )</content> UNK NEGATIVE <content [facility] styleCode="Julio Vaughans d">Urine Medical Bilirubin Center </content>NEGA TIVE <content styleCode="Dominique lics"> (NEGATIVE )</content> pH of Urine by 4.5-8.0 <content [facility] Test strip styleCode="Julio Vaughans d">Urine pH Medical </content>6.5 Center <content styleCode="Dominique lics"> (4.5-8.0 )</content> Urobilinogen 0.2-1.0 <content [facility] [Units/volume] styleCode="Julio Marly in Urine by d">Urine Medical Test strip Urobilinogen Center </content>0.2 MG/DL<content styleCode="Dominique lics"> (0.2-1.0 MG/DL)</conten t> Hemoglobin NEGATIVE <content [facility] [Presence] in styleCode="Julio Luke Urine by Test d">Urine Blood Medical strip </content>NEGA Center TIVE <content styleCode="Dominique lics"> (NEGATIVE )</content> Protein NEGATIVE <content [facility] [Mass/volume] styleCode="Julio Luke in Urine by d">Urine Medical Test strip Protein Center </content>NEGA TIVE MG/DL<content styleCode="Dominique lics"> (NEGATIVE MG/DL)</conten t> Leukocyte NEGATIVE <content [facility] esterase styleCode="Julio Luke [Presence] in d">Urine Medical Urine by Test Leukocyte Center strip </content>NEGA TIVE <content styleCode="Dominique lics"> (NEGATIVE )</content> Nitrite NEGATIVE <content [facility] [Presence] in styleCode="Julio Luke Urine by Test d">Urine Medical strip Nitrite Center </content>NEGA TIVE <content styleCode="Dominique lics"> (NEGATIVE )</content> ID Date Data Source Liver 04/24/2019 10:17:00 AM EDT [facility] Profile.[id number] Name Value Range Interpretation Description Data Sup porting Code Source(s) Document(s ) Aspartate 14-36 <content [facility] aminotransferase styleCode="Bold"> [facility] hs [Enzymatic Aspartate Medical activity/volume] Aminotransferase Center in Serum or Plasma (AST) </content>27 IU/L<content styleCode="Italic s"> (14-36 IU/L)</content> Bilirubin.total 0.2-1.3 <content [facility] [Mass/volume] in styleCode="Bold"> [facility] hs Serum or Plasma Bilirubin Total Medical </content>0.3 Center MG/DL<content styleCode="Italic s"> (0.2-1.3 MG/DL)</content> Alanine 7-30 <content [facility] aminotransferase styleCode="Bold"> [facility] hs [Enzymatic Alanine Medical activity/volume] Aminotransferase Center in Serum or Plasma (ALT) </content>25 IU/L<content styleCode="Italic s"> (7-30 IU/L)</content> Alkaline 38-126 Above high <content [facility] phosphatase normal styleCode="Bold"> Marly [Enzymatic Alkaline Medical activity/volume] Phosphatase (ALP) Cente r in Serum or Plasma </content>134 IU/L H<content styleCode="Italic s"> (38-126 IU/L)</content> Albumin 3.5-5.0 <content [facility] [Mass/volume] in styleCode="Bold"> [facility] hs Serum or Plasma Albumin Medical </content>4.2 Center G/DL<content styleCode="Italic s"> (3.5-5.0 G/DL)</content> UNK 0.0-0.3 <content [facility] styleCode="Bold"> Marly Bilirubin, Direct Medical </content>< 0.2 Center MG/DL<content styleCode="Italic s"> (0.0-0.3 MG/DL)</content> ID Date Data Source HematologyRou.[id number] 04/24/2019 10:17:00 AM EDT [facility] 0400 Name Value Range Interpretation Description Data Sup porting Code Source(s) Document(s ) Leukocytes 4.4-11.0 <content [facility] [#/volume] in styleCode="Bold [facility] Blood by ">White Blood Medical Automated count Cell Count Center </content>8.71 KCUMM<content styleCode="Ital ics"> (4.4-11.0 KCUMM)</content > Hematocrit 36.0-46. <content [facility] [Volume 0 styleCode="Bold [facility] Fraction] of ">Hematocrit Medical Blood by </content>44.9 Center Automated count %<content styleCode="Ital ics"> (36.0-46.0 %)</content> Erythrocytes 4.0-5.1 <content [facility] [#/volume] in styleCode="Bold [facility] Blood by ">Red Blood Medical Automated count Cell Count Center </content>4.92 MCUMM<content styleCode="Ital ics"> (4.0-5.1 MCUMM)</content > Erythrocyte mean 80.0-100 <content [facility] corpuscular .0 styleCode="Bold Marly volume [Entitic ">Mean Medical volume] by Corpuscular Center Automated count Volume </content>91.3 FL<content styleCode="Ital ics"> (80.0-100.0 FL)</content> Erythrocyte mean 26.0-34. <content [facility] corpuscular 0 styleCode="Bold Marly hemoglobin ">Mean Medical [Entitic mass] Corposcular Center by Automated Hemoglobin count </content>31.3 PG<content styleCode="Ital ics"> (26.0-34.0 PG)</content> Hemoglobin 12.3-16. <content [facility] [Mass/volume] in 0 styleCode="Bold Marly Blood ">Hemoglobin Medical </content>15.4 Center G/DL<content styleCode="Ital ics"> (12.3-16.0 G/DL)</content> Erythrocyte 11.5-14. <content [facility] distribution 5 styleCode="Bold Marly width [Ratio] by ">Red Cell Medical Automated count Distribution Center Width </content>12.6 %<content styleCode="Ital ics"> (11.5-14.5 %)</content> Platelets 130-400 <content [facility] [#/volume] in styleCode="Bold Marly Blood by ">Platelet Medical Automated count Count Center </content>283 KCUMM<content styleCode="Ital ics"> (130-400 KCUMM)</content > Erythrocyte mean 32.0-37. <content [facility] corpuscular 0 styleCode="Bold Marly hemoglobin ">Mean Corpus. Medical concentration Hgb Center [Mass/volume] by Concentration Automated count (MCHC) </content>34.3 G/DL<content styleCode="Ital ics"> (32.0-37.0 G/DL)</content> Platelet mean 8.0-11.0 <content [facility] volume [Entitic styleCode="Bold Marly volume] in Blood ">Mean Platelet Medical by Automated Volume Center count </content>10.1 FL<content styleCode="Ital ics"> (8.0-11.0 FL)</content> UNK 0.0 <content [facility] styleCode="Bold Marly ">Nucleated Red Medical Blood Cell Center Count </content>0.00 KCUMM<content styleCode="Ital ics"> (0.0 KCUMM)</content > UNK 0 <content [facility] styleCode="Bold Marly ">Nucleated Red Medical Blood Cell Center </content>0.0 /100<content styleCode="Ital ics"> (0 /100)</content> ID Date Data Source GFR(Creatinine).[id number] 04/24/2019 10:17:00 AM EDT [facility] 0-0400 Name Value Range Interpretation Code Description Data Diann rce(s) Supporting Document(s ) UNK > 60 <content [facility] styleCode="Bold"> Medical Cent er EGFR </content>110 GFR<content styleCode="Italic s"> (> 60 GFR)</content> ID Date Data Source CHMROUTINECCDA.[id number] 04/24/2019 10:17:00 AM EDT [facility] -0400 Name Value Range Interpretation Description Data Sup porting Code Source(s) Document(s ) Lipase 23-300 <content [facility] [Enzymatic styleCode="Bold Medical activity/vo ">Lipase Center lume] in </content>93 Serum or IU/L<content Plasma styleCode="Ital ics"> (23-300 IU/L)</content> ID Date Data Source [facility].[id number] 04/24/2019 10:17:00 AM EDT [facility] Name Value Range Interpretation Description Data Sup porting Code Source(s) Document(s ) Sodium 137-145 <content [facility] [Moles/volume] in styleCode="Bold"> [facility] phs Serum or Plasma Sodium Medical </content>142 Center MEQ/L<content styleCode="Italic s"> (137-145 MEQ/L)</content> Carbon dioxide, 22-30 Above high <content [facility] total normal styleCode="Bold"> Marly [Moles/volume] in Carbon Dioxide Medical Serum or Plasma </content>32 Center MEQ/L H<content styleCode="Italic s"> (22-30 MEQ/L)</content> Potassium 3.5-5.3 Below low <content [facility] [Moles/volume] in normal styleCode="Bold"> [facility] phs Serum or Plasma Potassium Medical </content>3.3 Center MEQ/L L<content styleCode="Italic s"> (3.5-5.3 MEQ/L)</content> Chloride 98-107 <content [facility] [Moles/volume] in styleCode="Bold"> [facility] phs Serum or Plasma Chloride Medical </content>100 Center MEQ/L<content styleCode="Italic s"> (98-107 MEQ/L)</content> UNK 7-17 Above high <content [facility] normal styleCode="Bold"> Marly BUN </content>22 Medical MG/DL H<content Center styleCode="Italic s"> (7-17 MG/DL)</content> Glucose 74-106 Above high <content [facility] [Mass/volume] in normal styleCode="Bold"> [facility] hs Serum or Plasma Glucose Medical </content>146 Center MG/DL H<content styleCode="Italic s"> (74-106 MG/DL)</content> Creatinine 0.5-1.3 <content [facility] [Mass/volume] in styleCode="Bold"> [facility] hs Serum or Plasma Creatinine Medical </content>0.6 Center MG/DL<content styleCode="Italic s"> (0.5-1.3 MG/DL)</content> UNK > 60 <content [facility] styleCode="Bold"> Marly EGFR Medical </content>110 Center GFR<content styleCode="Italic s"> (> 60 GFR)</content> Calcium 8.4-10. <content [facility] [Mass/volume] in 2 styleCode="Bold"> [facility] hs Serum or Plasma Calcium Medical </content>10.1 Center MG/DL<content styleCode="Italic s"> (8.4-10.2 MG/DL)</content> Aspartate 14-36 <content [facility] aminotransferase styleCode="Bold"> [facility] hs [Enzymatic Aspartate Medical activity/volume] Aminotransferase Center in Serum or Plasma (AST) </content>27 IU/L<content styleCode="Italic s"> (14-36 IU/L)</content> Bilirubin.total 0.2-1.3 <content [facility] [Mass/volume] in styleCode="Bold"> [facility] hs Serum or Plasma Bilirubin Total Medical </content>0.3 Center MG/DL<content styleCode="Italic s"> (0.2-1.3 MG/DL)</content> Alanine 7-30 <content [facility] aminotransferase styleCode="Bold"> [facility] hs [Enzymatic Alanine Medical activity/volume] Aminotransferase Center in Serum or Plasma (ALT) </content>25 IU/L<content styleCode="Italic s"> (7-30 IU/L)</content> Alkaline 38-126 Above high <content [facility] phosphatase normal styleCode="Bold"> Marly [Enzymatic Alkaline Medical activity/volume] Phosphatase (ALP) Cente r in Serum or Plasma </content>134 IU/L H<content styleCode="Italic s"> (38-126 IU/L)</content> Albumin 3.5-5.0 <content [facility] [Mass/volume] in styleCode="Bold"> [facility] hs Serum or Plasma Albumin Medical </content>4.2 Center G/DL<content styleCode="Italic s"> (3.5-5.0 G/DL)</content> Procedure Social History Code Duration Value Status Description Data Source(s ) Caffeine Use 04/10/2020 completed NEXTGEN ([facility] nt Details 12:00:00 AM EDT [facility]) Smoking 04/10/2020 Unknown if completed Unknown if ever NEXTGEN ( [facility] 12:00:00 AM EDT ever smoked smoked [facility]) Caffeine Use 04/10/2020 completed NEXTGEN ([facility] nt Details 12:00:00 AM EDT [facility]) Smoking 08/10/2019 Denies Ever completed Denies Ever [place] [facility] 06:17:00 PM EST Smoked Smoked Medical C enter Smoking 08/10/2019 Denies Ever completed Denies Ever [facility] 06:17:00 PM EST Smoked Smoked Medical C enter Smoking 08/10/2019 Denies Ever completed Denies Ever [facility] 05:05:00 PM EST Smoked Smoked Medical C enter Smoking 04/24/2019 Denies Ever completed Denies Ever [facility] 10:00:00 AM EDT Smoked Smoked Medical C enter Smoking 04/24/2019 Denies Ever completed Denies Ever [facility] 09:30:00 AM EDT Smoked Smoked Medical C enter Smoking 04/24/2019 Denies Ever completed Denies Ever [facility] 09:18:00 AM EDT Smoked Smoked Medical C enter Vital Signs ID Date Data Source UNK Name Value Range Interpretation Code Description Data Source(s) Oxygen saturation 98 % 98 % NEXTGEN ([facility] in Arterial [facility] by Pulse oximetry Center) Body mass index 35.84 kg/m2 Overweight 35.84 kg/m2 NEXTGEN ([facility] (BMI) [Ratio] [facility]) Respiratory rate 18 /min 18 /min [facility] ([facility]) Body temperature 36.17 Janet 36.17 Janet [facility] ([facility]) Heart rate 97 /min 97 /min [facility] ([facility]) Diastolic blood 84 mm[Hg] 84 mm[Hg] [facility] ( [facility]) Systolic blood 132 mm[Hg] 132 [facility] Body weight 94.710 kg 94.710 [facility] Body height 162.56 cm 162.56 cm [facility] ([facility]) Oxygen saturation 96 % 96 % [facility] by Pulse oximetry Center) Body mass index 35.36 kg/m2 Overweight 35.36 kg/m2 NEXTGEN ([facility] (BMI) [Ratio] [facility]) Respiratory rate 18 /min 18 /min [facility] ([facility]) Body temperature 36.17 Janet 36.17 Janet [facility] ([facility]) Heart rate 90 /min 90 /min [facility] ([facility]) Diastolic blood 80 mm[Hg] 80 mm[Hg] [facility] ( [facility]) Systolic blood 120 mm[Hg] 120 mm[Hg] NEXTGEN ([facility] pressure [facility]) Body weight 93.440 kg 93.440 kg [facility] Body height 162.56 cm 162.56 cm [facility] ([facility]) Systolic blood 122 mm[Hg] 122 mm[Hg] NEXTGEN (S [facility] [place]) Heart rate 82 /min 82 /min [facility] [place] Diastolic blood 80 mm[Hg] 80 mm[Hg] [facility] ( [facility] [place] Systolic blood 118 mm[Hg] 118 mm[Hg] NEXTGEN ([facility] pressure [facility] [place]) Heart rate 82 /min 82 /min [facility] [facility]) Diastolic blood 80 mm[Hg] 80 mm[Hg] [facility] ( [facility] [place] Systolic blood 114 mm[Hg] 114 mm[Hg] NEXTGEN (S nt [facility]) Heart rate 81 /min 81 /min [facility] ([facility]) Diastolic blood 87 mm[Hg] 87 mm[Hg] [facility] ( [facility]) Oxygen saturation 96 % 96 % NEXTGEN ([facility] in Arterial blood [facility] by Pulse oximetry Center) Body mass index 35.98 kg/m2 Overweight 35.98 kg/m2 NEXTGEN ([facility] (BMI) [Ratio] [facility]) Respiratory rate 20 /min 20 /min [facility] ([facility]) Body temperature 36.94 Janet 36.94 Janet [facility] ([facility]) Heart rate 95 /min 95 /min [facility] ([facility]) Diastolic blood 68 mm[Hg] 68 mm[Hg] [facility] ( [facility] [place] Systolic blood 117 mm[Hg] 117 mm[Hg] NEXTGEN ([facility] nt [facility] [place] Body weight 95.073 kg 95.073 kg [facility] Body height 162.56 cm 162.56 cm [facility] Oxygen saturation 97 % 97 % NEXTGEN ([facility] Arterial blood [facility] by Pulse [facility]etry Center) Body mass index 34.50 kg/m2 Overweight 34.50 kg/m2 NEXTGEN ([facility] (BMI) [Ratio] [facility]) Respiratory rate 18 /min 18 /min [facility] ([facility]) Body temperature 36.44 Janet 36.44 Janet [facility] ([facility]) Heart rate 84 /min 84 /min [facility] ([facility]) Diastolic blood 74 mm[Hg] 74 mm[Hg] [facility] ( [facility] pressure [facility]) Systolic blood 114 mm[Hg] 114 mm[Hg] [facility] ([facility]) Body weight 91.172 kg 91.172 kg [facility] ([facility]) Body height 162.56 cm 162.56 cm [facility] ([facility]) Body weight 81.151064 kg 81.576219 kg [facility] Body temperature 36.439497 36.043575 Janet [facility] Respiratory rate 18 /min 18 /min [facility] Oxygen saturation 99 % 99 % [facility] by Pulse oximetry Heart rate 94 /min 94 /min [facility] Body height 160.186168 160.240199 cm [facility] Diastolic blood 77 mm[Hg] 77 mm[Hg] [facility] Systolic blood 147 mm[Hg] 147 mm[Hg] [facility] Body mass index 31.8 kg/m2 31.8 kg/m2 [facility] (BMI) [Ratio] Medical [facility] Oxygen saturation 96 % 96 % [facility] ([facility] Arterial [facility] by Pulse oximetry Center) Body mass index 33.64 kg/m2 [facility] 33.64 [facility] (BMI) [Ratio] [facility]) Respiratory rate 19 /min 19 /min [facility] ([facility]) Body temperature 36.22 Janet 36.22 Janet [facility] ([facility]) Heart rate 95 /min 95 /min [facility] ([facility]) Diastolic blood 65 mm[Hg] 65 mm[Hg] [facility] ( [facility] pressure [facility]) Systolic blood 100 mm[Hg] 100 mm[Hg] [facility] (S aint pressure [facility]) Body weight 88.904 kg 88.904 kg [facility] ([facility]) Body height 162.56 cm 162.56 cm [facility] ([facility]) Body temperature 36.660379 36.014893 [facility] Respiratory rate 20 /min 20 /min [facility] Heart rate 72 /min 72 /min [facility] Diastolic blood 62 mm[Hg] 62 mm[Hg] [facility] Systolic blood 104 mm[Hg] 104 mm[Hg] [facility] Body weight 80.290471 kg 80.922025 kg [facility] Body temperature 37.622019 37.745837 [facility] Respiratory rate 20 /min 20 /min [facility] Oxygen saturation 98 % 98 % [facility] anabellep in Arterial blood [facility] by Pulse oximetry Heart rate 116 /min 116 /min [facility] Body height 154.073880 154.414880 cm [facility] Diastolic blood 92 mm[Hg] 92 mm[Hg] [facility] Systolic blood 140 mm[Hg] 140 mm[Hg] [facility] Body mass index 33.3 kg/m2 33.3 kg/m2 [facility] (BMI) [Ratio] Medical [facility] Treatment Plan of Care Planned Activity Planned Date Details Description Data Source (s) Ibuprofen 400 MG Oral 05/29/2020 12:00:00 [facility] ([facility] Tablet [facility]) Ibuprofen 400 MG Oral 05/29/2020 12:00:00 [facility] ([facility] Tablet [facility]) Ibuprofen 400 MG Oral 05/25/2020 12:00:00 [facility] ([facility] Tablet [facility]) Meclizine Hydrochloride 25 05/24/2020 12:00:00 [facility] ([facility] Oral Tablet [facility]) Aspirin 81 MG Delayed 05/24/2020 12:00:00 [facility] ([facility] Release Oral Tablet [facility]) Chlorthalidone 25 MG Oral 05/24/2020 12:00:00 [facility] ([facility] Tablet [facility]) Lisinopril 10 MG Oral 05/24/2020 12:00[facility]00 [facility] Tablet [facility]) Shingrix (PF) 50 mcg/0.5 04/10/2020 12:00:00 [facility]EXT[facility] ([facility] mL intramuscular [facility] Med ical suspension, kit Center) Meclizine Hydrochloride 25 04/05/2020 12:00:00 [facility]EXT[facility] ([facility] Oral Tablet [facility]) Chlorthalidone 25 MG Oral 04/05/2020 12:00:00 [facility]EXT[facility] ([facility] Tablet [facility]) Lisinopril 10 MG Oral 04/05/2020 12:00:00 [facility] ([facility] Tablet [facility]) Chlorthalidone 25 MG Oral 04/27/2019 12:00:00 [facility] ([facility]) Enalapril Maleate 10 MG 04/27/2019 12:00:00 [facility] ([facility] Oral Tablet [facility]) Meclizine Hydrochloride 04/27/2019 [facility]t [facility]) Meclizine Hydrochloride 01/21/2019 12:00:00 [facility] ([facility] 12.5 MG Oral Tablet [facility]) Aspirin 81 MG Delayed 08/27/2018 12:00:00 NEXT[facility] ([facility] Release Oral Tablet [facility]) Chlorthalidone 25 MG Oral 08/27/2018 12:00:00 [facility] ([facility] Tablet [facility]) Enalapril Maleate 10 MG 08/27/2018 12:00:00 [facility] ([facility] Oral Tablet [facility]) Ibuprofen 400 MG Oral 03/30/2018 12:00:00 [facility] ([facility])
[2020-06-13 12:05] VITALS: BMI 32.5
--- OUTSIDE RECORDS SUMMARY | 2020-06-16 07:55 | XMS ---
:[address] [facility] Care Team Providers Name Role Phone Ringstad, Andree Unavailable Unavailable Ringstad, Andree Unavailable Unavailable Ringstad, Andree Unavailable Unavailable Ringstad, Andree Unavailable Unavailable Ringstad, Andree Unavailable Unavailable Ringstad, Andree Unavailable Unavailable Ringstad, Andree Unavailable Unavailable Ringstad, Andree Unavailable Unavailable Ringstad, Andree Unavailable Unavailable Ringstad, Andree Unavailable Unavailable Ringstad, Andree Unavailable Unavailable Daniel Cuba Unavailable [phone] ED STAFF PHYSICIAN, STAFF Unavailable Unavailable MD LIANA RAI Unavailable MD LIANA RAI Unavailable MD LIANA RAI Unavailable MD LIANA RAI Unavailable MD LIANA RAI Unavailable Coloka-Kump, Rodika DO Unavailable Unavailable Coloka-Kump, [...] Unavailable Unavailable Coloka-Kump, Rodika DO Unavailable Unavailable Ringstad, Andree Unavailable Unavailable Ringstad, Andree Unavailable Unavailable Ringstad, Andree Unavailable Unavailable Ringstad, Andree Unavailable Unavailable Ringstad, Andree Unavailable Unavailable Ringstad, Andree Unavailable Unavailable Ringstad, Andree Unavailable Unavailable Ringstad, Andree Unavailable Unavailable Ringstad, Andree Unavailable Unavailable Ringstad, Andree Unavailable Unavailable Ringstad, Andree Unavailable Unavailable PRZECHODFlavioKA HARDY, HARDY Unavailable Unavailable MOHSEN, JOAQUÍN DO Unavailable Unavailable MOHSEN, JOAQUÍN DO Unavailable Unavailable OMHSEN, JOAQUÍN DO Unavailable Unavailable MOHSEN, JOAQUÍN DO Unavailable Unavailable BBOBY HERNANDEZ Unavailable Unavailable Aszalos, Lisa Lexi Unavailable Unavailable [...] MD Unavailable Unavailable OBINNA EZEQUIEL Unavailable Unavailable [place] Unavailable [phone] [place] Unavailable [phone] Aszalos, Lexi Unavailable Unavailable Aszalos, Lexi Unavailable [...] Carol MD Unavailable Unavailable ZUNASSIGNED Unavailable Unavailable BEKAH MALHOTRA Rian Unavailable Unavailable ZUNASSIGNED@, Unavailable Unavailable Re-disclosure Warning [...] is protected by Article 27-F of the [facility] Public Health law. If you continue you may haveaccess to information: Regarding HIV / AIDS; Provided by facilities licensed or operated by the [facility] Office of Mental Health; or Provided by the [facility] Office for People With Developmental Disabilities. If such information is present, then the following [facility] mandated warning applies: This information has [...] law may result in a fine or fci sentence or both. A general authorization for the release of medical or other information is NOT sufficient authorization for further disclosure. Family History Family Member Family Member Family Member Date of Description Data Source(s) Name Gender Status Status Unknown Female Problem 04/08/2013 ELIA ([facility] ([facility]) 12:00:00 AM [facility] EDT Center) Encounters Encounter Providers Location Date Indications Data Source(s ) Outpatient Attender: 06/14/2020 [facility] ZUNASSIGNEDAdmitt 10:44:00 Medical Center er: AM EDT ZUNASSIGNEDReferr er: [id number] ZUNASSIGNED@, Outpatient Admitter: [id number] 06/14/2020 [facility] MONTALVOIGNED@,Refe 12:00:00 [facility] rrer: [id number] AM EDT ZUNASSIGNED@, Attender: [facility] 05[facility]29[facility]2020 [facility] 10[facility]03[facility] 05/29/2020 10:03:00 AM EDT Attender: Count Includes [facility] 01:07:00 [facility] Medic al PM EDT - Center) 05/24/2020 01:07:00 PM EDT Outpatient Attender: 05/23/2020 [facility] KATIAIGNEDAdmitt 09:03:00 Medical Center er: AM EDT ZUNASSIGNEDReferr er: [id number] ZUNASSIGNED@, Outpatient Attender: Jennifer Briones 05/23/2020 [facility] 08:38:00 [facility] MDAttender: AM EDT Rodika Coloka-Kump DOAdmitter: Jennifer Smith MDReferrer: Rodika Coloka-Kump DO OutpatientOFFICE/ Attender: Count Includes [facility] 05/23/2020 [facility] V[facility], [facility] 08:38:00 [facility] AM EDT - Center) 05/23/2020 08:38:00 AM EDT Outpatient Admitter: [id number] 05/23/2020 Betty ale CHRISTIAN@,Refe 12:00:00 Medical Center rrer: [id number] AM EDT ZUNASSIGNED@, Outpatient Attender: Lisa Briones 04/10/2020 Botkinsharika meza AszalosAdmitter: 09:49:00 Medical [facility] AM EDT AszalosReferrer: Lisa Bay OutpatientOFFICE/ Attender: Count Includes [facility] 04/10/2020 [facility] ([facility] OUTPATIENT VISIT, [facility] 09:49:00 [facility] Medical EST AM EDT - Center) 04/10/2020 09:49:00 AM EDT Outpatient 04/10/2020 [facility] 08:55:00 Medical [place] AM EDT Outpatient 04/10/2020 [facility] 12:00:00 Medical [place] AM EDT Outpatient 04/05/2020 [facility] 11:48:00 Medical [place] AM EDT Outpatient Attender: Na Briones 04/05/2020 [facility] Coloka-Kump 08:24:00 Medical Fozia barbosa DOAdmitter: AM EDT Rodcharlene Coloka-Kump DOReferrer: Na Coloka-Kump DO OutpatientOFFICE/ Attender: Count Includes [facility] 04/05/2020 [facility] ([facility] OUTPATIENT VISIT, [facility] 08:24:00 [facility] Medical EST AM EDT - Center) 04/05/2020 08:24:00 AM EDT Outpatient 04/05/2020 [facility] 12:00:00 Medical [place] AM EDT Outpatient Attender: HARDY Briones 02/25/2020 [facility] PRZECHODPEE 08:21:00 Medical Fozia barbosa DANUTAAdmitter: AM EDT HARDY PRZECHODZKA DANUTAReferrer: BOBBY HERNANDEZ Attender: [facility] 09/28/2019 NEXT N ([facility] 12:06:00 [facility] Medica l PM EST - Center) 09/28/2019 12:06:00 PM EST Outpatient Attender: HARDY Briones 09/10/2019 [facility] Betty aguilera PRZECHODZMIKY 09:00:00 Medical Fozia barbosa DANUTAAdmitter: AM EST HARDY PRZECHODZKA DANUTAReferrer: JOAQUÍN CONNOLLY DO Attender: [facility] 08/26/2019 [facility] N ([facility] 11:28:00 Marly Medica l AM EST - Center) 08/26/2019 11:28:00 AM EST Outpatient Attender: HARDY Briones 08/26/2019 [facility] MONE 11:10:00 Medical Fozia DASHAdmitter: AM EST HARDY MONE DANUTAReferrer: JOAQUÍN CONNOLLY DO Outpatient Attender: EZEQUIEL Briones 08/17/2019 [facility] OBINNA 02:12:00 Medical Center MINALAdmitter: PM EST EZEQUIEL OBINNA MINALReferrer: EZEQUIEL YEBOAH EZEQUIEL Attender: [facility] 08/17/2019 NEXT GEN ([facility] 02:12:00 [facility] PM EST - Center) 08/17/2019 02:12:00 PM EST Outpatient 08/17/2019 [facility] 11:18:00 Medical Center AM EST Outpatient 08/17/2019 [facility] 12:00:00 Medical Center AM EST Attender: [facility] 08/13/2019 ELIAGEN ([facility] 11:30:00 [facility] EST - Center) 08/13/2019 11:30:00 AM EST Emergency Attender: ROSCOE Briones 08/10/2019 [facility] BEKAH MALHOTRA 05:00:00 Medical Ce nter CAttender: STAFF PM EST - ED STAFF 08/10/2019 PHYSICIANAdmitter 08:39:00 : ROSCOE GODFREY PM EST ROSCOE C Patient discharged. Outpatient 08/10/2019 [facility] 03:54:00 PM EST Medical C enter Outpatient 08/10/2019 [facility] 12:00:00 AM EST Medical C enter Attender: [facility] 07/16/2019 NEXTARLETTE N ([facility] [place] 03:13:00 PM EST [facility] 07/16/2019 Center) 03:13:00 PM EST Attender: [facility] 05/13/2019 NITHYA N ([facility] PRAOD [place] 09:53:00 AM EDT [facility] 05/13/2019 Center) 09:53:00 AM EDT Attender: [facility] 05/05/2019 NEXTARLETTE N ([facility] PR[facility]O [place] 09:42:00 AM EDT [facility] 05/05/2019 Center) 09:42:00 AM EDT Attender: [facility] 04/29/2019 NEXTGEN (Sa int Andree Tova [place] 04:43:00 PM EDT [facility] 04/29/2019 Center) 04:43:00 PM EDT Outpatient Attender: H 04/27/2019 [facility] Andree 02:33:00 PM EDT Medical C enter RingstadAdmitter: Andree Munsonerrer: Andree Bernardo OutpatientOFFICE/OU Attender: Connor [facility] 04/27/2019 NEXTGEN ([facility] TPATIENT VISIT, [facility] 02:33:00 PM EDT [facility] 04/27/2019 Center) 02:33:00 PM EDT Outpatient 04/27/2019 [facility] 09:53:00 AM EDT Medical C enter Outpatient 04/27/2019 [facility] 12:00:00 AM EDT Medical C enter Emergency H 04/24/2019 [facility] 09:03:00 AM EDT - [facility] 04/24/2019 02:50:00 PM EDT Patient discharged. 04/24/2019 12:00:00 AM EDT - 013 12:00:00 [facility] AM EST Immunizations Vaccine Date Status Description Data Source(s) New in 2011. IIV4 05/23/2020 completed Influenza, Injectable, NEXTGEN ([facility] 12:00:00 AM EDT Quadriv[facility]) Source: New Immunization Record pneumococcal 04/10/2020 completed Adult Pneumococcal NEXTGEN ( [facility] polysaccharide PPV23 12:00:00 AM EDT [facility]) Source: New Immunization Record Medications Medication Brand Start Product Dose Route Administrative Pharm[facility] Indications Reaction Description Data Name Date [...] mg tablet 12:00:00 AM {tablet} tablet by ( 25 MG Oral EDT oral Marly Tablet [...] SCULAR varicella ( intramuscular zoster virus EDT zoharika Gaffney suspension, glycoprotein virus Medical kit E, glycoprot [...] Oral EDT oral [facility]t [facility] ) mg tablet every day as needed Enalapril enalapril 04/27/2019 completed TAKE 1 NEXTGEN Maleate 10 MG maleate 10 mg 12:00:00 AM TABLET (Saint Oral Tablet tablet EDT (10MG) BY Lory dunn enalapril ORAL Medical maleate [address] [facility] r) tablet EVERY DAY Chlorthalidon chlorthalidon 04/27/2019 [...] EDT oral Patrick hs Tablet route 3 [facility]) 12.5 mg every day tablet as needed Meclizine meclizine 01/21/2019 2.00 ORAL completed take 2 NEXTGEN Hydrochloride 12.5 mg 12:00:00 AM {tbl} tablet by (Saint 12.5 MG Oral tablet EDT oral Patrick hs Tablet route 3 [facility]) 12.5 mg every day tablet as needed [...] name Policy type Policy ID Covered Covered green party's Policy P mike / Coverage green party ID relationship to Siegel Inf ormation type siegel TONIA [id number] SP [id number] [facility] AETNA [id number] self [id number] LOCAL [id number] O [id number] 01 [id number] O [id number] 01 [id number] BENEFITS FUND STRATEGIC O [id number] COMP KAYLEEN O NA 01 NA SHELTER LOCAL 1199 O [id number] 01 [id number] O [id number] 01 [id number] BENEFITS FUND LOCAL 1199 O [id number] 01 [id number] Dental [id number] S [id number] [employer]I PPO / Preffered Plus 1199 SEIU [id number] S [id number] Home Care Benefit Fund Problems, Conditions, and Diagnoses Code Display Name Description Problem Type Effective Data Dates Source(s) M25.511 Pain in right PAIN IN RIGHT Diagnosis 05/23/2020 [facility] jimeness shoulder SHOULDER 08:38:00 AM Medical EDT Center Z23 Encounter for ENCOUNTER FOR Diagnosis 05/23/2020 [facility] sephs immunization IMMUNIZATION 08:38:00 AM Medical EDT Center [...] specified OTH INDUSTRIAL AND Diagnosis 08/10/2019 S kody Luke industrial and CONSTRUCTION AREA 05:00:00 PM [facility] construction area PLACE EST Center as the place of occurrence of the external cause Y93.9 Activity, ACTIVITY, Diagnosis 08/10/2019 [facility] unspecified UNSPECIFIED 05:00:00 PM Medical EST Center X58.XXXA Exposure to other EXPOSURE TO OTHER Diagnosis 08/10/2019 [facility] specified factors, SPECIFIED FACTORS, 05:00:00 PM Medical initial encounter INITIAL ENCOUNTER EST Center S46.911A Strain of STRAIN UNSP Diagnosis 08/10/2019 [facility] unspecified MUSC/FASC/TEND AT 05:00:00 PM Medic al muscle, fascia and SHLDR/UP ARM, EST José Miguel ter tendon at shoulder RIGHT ARM, INIT and upper arm level, right arm, initial encounter M25.519 Pain in PAIN IN Diagnosis 08/10/2019 [facility] unspecified UNSPECIFIED 05:00:00 PM Medical shoulder SHOULDER EST Center Z71.3 Dietary counseling DIETARY COUNSELING Diagnosis 9 [facility] and surveillance AND SURVEILLANCE 02:33:00 PM edical EDT Center R73.03 Prediabetes PREDIABETES Diagnosis 04/27/2019 [facility] s 02:33:00 PM Medical EDT Center Z68.33 Body mass index BODY MASS INDEX Diagnosis 04/27/2019 Lalitatrisha Luke (BMI) 33.0-33.9, (BMI) 33.0-33.9, 02:33:00 PM edical adult ADULT EDT Center A88.1 Epidemic vertigo EPIDEMIC VERTIGO Diagnosis 04/24/2019 Sa haro Marly 09:03:00 AM Medical EDT Center R11.0 Nausea NAUSEA Diagnosis 04/24/2019 [facility] 09:03:00 AM Medical EDT Center Surgeries/Procedures Procedure Description Date Indications Data Source(s) OFFICE/OUTPATIENT VISIT, 05/23/2020 NEX TGEN ([facility] EST 12:00:[address] [facility] - 05/23/2020 [place]) 12:00:00 AM EDT Influenza, Injectable, 3 05/23/2020 NEX TGEN ([facility] Yrs Or Older 12:00:00 AM EDT [facility] 05/23/2020 [place]) 12:00:00 AM EDT Immunization 05/23/2020 NEXTGEN ([facility] Administration 12:00:00 AM EDT [facility] dictn - 05/23/2020 [place]) 12:00:00 AM EDT OFFICE/OUTPATIENT VISIT, 04/10/2020 NEX TGEN ([facility] EST 12:00:[address] [facility] - 04/10/2020 [place]) 12:00:00 AM EDT Pneumonia Vaccine 04/10/2020 NEXTGEN (S aint 12:00:00 AM EDT [facility] 04/10/2020 [place]) 12:00:00 AM EDT Immunization 04/10/2020 NEXTGEN ([facility] Administration 12:00:00 AM EDT [facility] dical - 04/10/2020 [place]) 12:00:00 AM EDT OFFICE/OUTPATIENT VISIT, 04/05/2020 NEX TGEN ([facility] EST 12:00:[address] [facility] - 04/05/2020 [place]) 12:00:00 AM EDT ROUTINE VENIPUNCTURE 04/05/2020 NEXTGEN ([facility] 12:00:00 AM EDT [facility] 04/05/2020 [place]) 12:00:00 AM EDT OFFICE/OUTPATIENT VISIT, 04/27/2019 NEX TGEN ([facility] EST 12:00:[address] [facility] - 04/27/2019 [place]) 12:00:00 AM EDT Results ID Date Data Source [id number] 06/12/2020 11:05:00 AM EDT [facility] Name Value Range Interpretation Description Data Sup porting Code Source(s) Document(s ) SARS [facility] coronavirus 2 RNA This lab was ordered by AZALIA PINTO and reported by [facility]. ID Date Data Source [id number] 06/08/2020 11:05:00 AM EDT [facility] Name Value Range Interpretation Code Description Data Diann rce(s) Supporting Document(s ) SARS-CoV-2 [facility] BY PCR This lab was ordered by JEANETTE Modi and reported by [facility]. ID Date Data Source Liver 05/23/2020 11:01:00 AM EDT [facility] Profile.[id number] Name Value Range Interpretation Description Data Sup [...] s"> (0.2-1.3 MG/DL)</content> ID Date Data Source HematologyRou.[id number] 05/23/2020 11:01:00 AM EDT [facility] 0400 Name Value Range Interpretation Description Data Sup porting Code Source(s) Document(s ) Hematocrit 36.0-46. <content Saint [Volume 0 styleCode="CrowdCurity [facility] Fraction] of ">Hematocrit Medical Blood by </content>42.6 Center Automated count %<content styleCode="Ital ics"> (36.0-46.0 %)</content> Leukocytes 4.4-11.0 <content Saint [#/volume] in styleCode="Bold [facility] Blood by ">White Blood Medical Automated count Cell Count Center </content>9.01 KCUMM<content styleCode="Ital ics"> (4.4-11.0 KCUMM)</content > Erythrocytes 4.0-5.1 <content Saint [#/volume] in styleCode="Bold [facility] Blood by ">Red Blood Medical Automated [...] 24.0-44. <content Saint [#/volume] in 0 styleCode="Bold Amrly Blood by ">Lymphocyte Medical Automated count </content>28.7 [...] (0 /100)</content> UNK 0.0-0.3 <content Saint styleCode="Bold Marly ">Basophil Medical Count Center </content>0.09 KCUMM<content styleCode="Ital ics"> (0.0-0.3 KCUMM)</content > UNK < 1 <content Saint styleCode="Bold Marly ">Immature Medical Granulocyte Center Ratio </content>0.6 %<content styleCode="Ital ics"> (< 1 %)</content> ID Date Data Source GFR(Creatinine).[id number] 05/23/2020 11:01:00 AM EDT [facility] 0-0400 Name Value Range Interpretation Code Description Data Diann rce(s) Supporting Document(s ) UNK > 60 <content Marly styleCode="Bold"> Medical Cent er EGFR </content>79 GFR<content styleCode="Italic s"> (> 60 GFR)</content> ID Date Data Source CHMROUTINECCDA.[id number] 05/23/2020 11:01:00 AM EDT [facility] -0400 Name Value Range Interpretation Description Data Sup porting Code Source(s) Document(s ) UNK 2.3-3.5 <content Saint [facility] styleCode="Bold Medical ">Globulin Center </content>3.1 G/DL<content styleCode="Ital ics"> (2.3-3.5 G/DL)</content> Protein 6.3-8.2 <content Saint Marly [Mass/volum styleCode="Bold Medical e] in Serum ">Total Protein Center or Plasma </content>7.5 G/DL<content styleCode="Ital ics"> (6.3-8.2 G/DL)</content> UNK >= 1.0 <content Saint Marly styleCode="Bold Medical ">AG Ratio Center </content>1.4 <content styleCode="Ital ics"> (>= 1.0 )</content> ID Date Data Source [id number] 05/23/2020 11:01:00 AM EDT [facility] Name Value Range Interpretation Description Data Sup porting Code Source(s) Document(s ) Creatinine 0.5-1.3 <content Saint [Mass/volume] in styleCode="Bold"> Patrick hs Serum or Plasma Creatinine Medical </content>0.8 Center MG/DL<content styleCode="Italic s"> (0.5-1.3 MG/DL)</content> Potassium 3.5-5.3 <content Saint [Moles/volume] in styleCode="Bold"> [facility] Serum or Plasma Potassium Medical </content>4.0 Center MEQ/L<content styleCode="Italic s"> (3.5-5.3 MEQ/L)</content> Sodium 137-145 <content Saint [Moles/volume] in styleCode="Bold"> [facility] Serum or Plasma Sodium Medical </content>138 Center MEQ/L<content styleCode="Italic s"> (137-145 MEQ/L)</content> UNK 7-17 Above high <content Saint normal styleCode="Bold"> Marly BUN </content>25 Medical MG/DL H<content Center styleCode="Italic s"> (7-17 MG/DL)</content> Chloride 98-107 <content Saint [Moles/volume] in styleCode="Bold"> [facility] Serum or Plasma Chloride Medical </content>100 Center [...] s"> (3.5-5.0 G/DL)</content> ID Date Data Source [id number] 05/18/2020 09:11:00 AM EDT [facility] Name Value Range Interpretation Description Data Sup porting Code Source(s) Document(s ) SARS [facility] coronavirus 2 RNA This lab was ordered by AZALIA PINTO and reported by [facility]. ID Date Data Source [id number] 04/11/2020 05:03:00 PM EDT [facility] Name Value Range Interpretation Code Description Data Diann rce(s) Supporting Document(s ) HOLOGIC [facility] SARS-CoV-2 [facility] PCR This lab was ordered by CELESTINE KEEN MD and reported by [facility]. ID Date Data Source [id number] 04/10/2020 10:42:10 AM EDT NEXTG EN ([facility] [id number] [place]) Name Value Range Interpretation Code Description Data Diann rce(s) Supporting Document(s ) 164 WHOLE BLOOD [facility]EXTGEN ([facility]) 164 [facility]) ID Date Data Source [id number] 04/05/2020 10:08:00 AM EDT NEXTG EN ([facility] [id number] [place]) Name Value Range Interpretation Code Description Data Diann rce(s) Supporting Document(s ) 1.05 MIU/L 0.465-4.68 TSH [facility]) ID Date Data Source [id number] 04/05/2020 10:08:00 AM EDT NEXTG EN ([facility] [id number] [place]) Name Value Range Interpretation Code Description Data Diann rce(s) Supporting Document(s ) 7.2 % 4.2-5.8 Above high normal HB A1C NEXTGEN ([facility]) ID Date Data Source [id number] 04/05/2020 10:08:00 AM EDT NEXTG EN ([facility] [id number] [place]) Name Value Range Interpretation Code Description Data Diann rce(s) Supporting Document(s ) 47 MG/DL > 60 Below low normal HDL- CHOL NEXTGEN ([facility]) 106 MG/DL < 150 TRIGLYCERIDES [facility] ([facility]) 93 MG/DL < 100 LDL- CALC [facility]) 161 MG/DL <200 CHOLESTEROL [facility] ([facility]) ID Date Data Source [id number] 04/05/2020 10:08:00 AM EDT NEXTG EN ([facility] [id number] [place]) Name Value Range Interpretation Code Description Data Supporting Source(s) Document(s ) 140 MEQ/L 137-145 SODIUM [facility] ([facility]) 3.7 MEQ/L 3.5-5.3 POTASSIUM [facility]) 106 MEQ/L 98-107 CHLORIDE [facility] ([facility]) 31 MEQ/L 22-30 Above high normal CARBON DIOXIDE [facility] ([facility]) 6.7 G/DL 6.3-8.2 TOTAL PROTEIN [facility]) 3.6 G/DL 3.5-5.0 ALBUMIN [facility] ([facility]) 33 IU/L 14-36 AST (GOT) [facility] ([facility]) 1.2 >= 1.0 AG RATIO [facility] ([facility]) 3.1 G/DL 2.3-3.5 GLOBULIN [facility] ([facility]) 37 IU/L 7-30 Above high normal ALT [facility] ([facility]) 155 IU/L 38-126 Above high normal ALP [facility]) 92 GFR > 60 eGFR [facility] ([facility]) Estimated GFR is calculated using the Mo [...] 19 MG/DL 7-17 Above high normal BUN NEXTGEN ([facility]) 0.7 MG/DL 0.5-1.3 CREATININE NEXTGEN ([facility]) 9.3 MG/DL 8.4-10.2 CALCIUM NEXTGEN ([facility]) < 0.2 0.2-1.3 Below low normal BILI, TOTAL NEXTGEN ([facility]) 126 MG/DL 74-106 Above high normal GLUCOSE [facility]EXTGEN ([facility]) ID Date Data Source [id number] 04/05/2020 10:08:00 AM EDT NEXTG EN ([facility] [id number] [place]) Name Value Range Interpretation Code Description Data Idann rce(s) Supporting Document(s ) 161 MG/DL <200 CHOLESTEROL [facility] ([facility]) 106 MG/DL < 150 TRIGLYCERIDES [facility] ([facility]) 47 MG/DL > 60 Below low normal HDL- CHOL [facility] ([facility]) ID Date Data Source [id number] 04/05/2020 10:08:00 AM EDT NEXTG EN ([facility] [id number] [place]) Name Value Range Interpretation Description Data Sup porting Code Source(s) Document(s ) 140 MEQ/L 137-145 SODIUM [facility] ([facility]) 31 MEQ/L 22-30 Above high normal CARBON DIOXIDE [facility] ([facility]) 106 MEQ/L 98-107 CHLORIDE [facility] ([facility]) 6.7 G/DL 6.3-8.2 TOTAL PROTEIN [facility] ([facility]) 3.6 G/DL 3.5-5.0 ALBUMIN [facility] ([facility]) 33 IU/L 14-36 AST (GOT) [facility] ([facility]) 9.3 MG/DL 8.4-10.2 CALCIUM [facility] 37 IU/L 7-30 Above high normal ALT [facility] ([facility]) 155 IU/L 38-126 Above high normal ALP [facility] ([facility]) 19 MG/DL 7-17 Above high normal BUN [facility] ([facility]) 126 MG/DL 74-106 Above high normal GLUCOSE [facility] ([facility]) 0.7 MG/DL 0.5-1.3 CREATININE [facility] ([facility]) ID Date Data Source [id number] 04/05/2020 10:08:00 AM EDT [facility] EN ([facility] [id number] [place]) Name Value Range Interpretation Code Description Data Diann rce(s) Supporting Document(s ) 4.31 MCUMM 4.0-5.1 RBC [facility]) 9.30 KCUMM 4.4-11.0 WBC [facility]) 13.3 G/DL 12.3-16.0 HGB [facility]) 93.0 FL 80.0-100.0 MCV [facility]) 40.1 % 36.0-46.0 HCT [facility]) 30.9 PG 26.0-34.0 MCH [facility]) 33.2 G/DL 32.0-37.0 MCHC [facility]) 13.0 % 11.5-14.5 RDW [facility] ([facility]) 11.0 FL 8.0-11.0 MPV [facility]) 252 KCUMM 130-400 PLT [facility]) 0.0 /100 0 NRBC% [facility] ([facility]) New parameters included in the report o f automated CBCNRBC(%/#) Is a direct count of Nucleated Red Blood cell, and will bereported with every CBC count. WBC will automatically be corrected withthe presence of NRBC. 0.00 KCUMM 0.0 NRBC ABS# [facility] ([facility]) 28.1 % 24.0-44.0 LYMPHOCYTE % [facility] ([facility]) 63.0 % 36-66 NEUTROPHIL % [facility] ([facility]) 5.5 % 3.0-10.0 MONOCYTE % [facility] 0.6 % 0.0-1.0 BASOPHIL % [facility] ([facility]) 2.4 % 0-5.0 EOSINOPHIL % [facility] ([facility]) 5.86 KCUMM 1.6-7.3 NEUTROPHIL ABS# [facility] ([facility]) 2.61 KCUMM 1.0-4.8 LYMPHOCYTE ABS# [facility] ([facility]) 0.06 KCUMM 0.0-0.3 BASOPHIL ABS# [facility] ([facility]) 0.51 KCUMM 0.2-0.9 MONOCYTE ABS# [facility] ([facility]) 0.22 KCUMM 0.0-0.6 EOSINOPHIL ABS# [facility] ([facility]) 0.04 KCUMM 0-0.1 IG ABS# [facility] ([facility]) New parameters included in the report o f automated CBC/DIFF.IG:(%/#) Immature Granulocytes ,includes the presence of (Metamyelocyte,Myelocyte,and Promyelocyte) 0.4 % < 1 IG% [facility] ([facility]) ID Date Data Source [id number] 04/05/2020 10:08:00 AM EDT [facility] EN ([facility] [id number] [place]) Name Value Range Interpretation Code Description Data Diann rce(s) Supporting Document(s ) 1.17 NG/DL 0.78-2.19 FREE T4 [facility] ([facility]) ID Date Data Source Liver 04/05/2020 10:08:00 AM EDT [facility] [id number] Name Value Range Interpretation Description Data Sup [...] s"> (3.5-5.0 G/DL)</content> ID Date Data Source [id number] 04/05/2020 10:08:00 AM EDT [facility] Name Value Range Interpretation Description Data Sup porting Code Source(s) Document(s ) Triglyceride < 150 <content [facility] [Mass/volume] in styleCode="Julio Vaughans Serum or Plasma d">Triglycerid Medical es Center </content>106 MG/DL<content styleCode="Dominique lics"> (< 150 MG/DL)</conten t> UNK > 60 Below low normal <content Saint styleCode="Julio Marly d">HDL- Medical Cholesterol Center </content>47 MG/DL L<content styleCode="Dominique lics"> (> 60 MG/DL)</conten t> UNK < 100 <content Saint styleCode="Julio Vaughans d">LDL-Cholest Medical stephane Center </content>93 MG/DL<content styleCode="Dominique lics"> (< 100 MG/DL)</conten t> Cholesterol -<200 <content [facility] [Mass/volume] in styleCode="Julio Vaughans Serum or Plasma d">Cholesterol Medical </content>161 Center MG/DL<content styleCode="Dominique lics"> (-<200 MG/DL)</conten t> ID Date Data Source Hormones.[id number] 04/05/2020 10:08:00 AM EDT [facility] Name Value Range Interpretation Description Data Sup porting Code Source(s) Document(s ) Thyroxine (T4) 0.78-2.1 <content Saint free 9 styleCode="Julio Vaughans [Mass/volume] d">T4 Free Medical in Serum or </content>1.17 Center Plasma NG/DL<content styleCode="Dominique lics"> (0.78-2.19 NG/DL)</conten t> Thyrotropin 0.465-4. <content Saint [Units/volume] 68 styleCode="Julio Vaughans in Serum or d">Thyroid Medical Plasma by Stimulating Center Detection Hormone limit <= 0.05 </content>1.05 mIU/L MIU/L<content styleCode="Dominique lics"> (0.465-4.68 MIU/L)</conten t> ID Date Data Source HematologyRou.[id number] 04/05/2020 10:08:00 AM EDT [facility] 0400 Name Value Range Interpretation Description Data Sup porting Code Source(s) Document(s ) Leukocytes 4.4-11.0 <content Saint [#/volume] in styleCode="Bold [facility] Blood by ">White Blood Medical Automated [...] (< 1 %)</content> ID Date Data Source GFR(Creatinine).[id number] 04/05/2020 10:08:00 AM EDT [facility] 0-0400 Name Value Range Interpretation Code Description Data Diann rce(s) Supporting Document(s ) UNK > 60 <content [facility] styleCode="Bold"> Medical Cent er EGFR </content>92 GFR<content styleCode="Italic s"> (> 60 GFR)</content> ID Date Data Source CHMROUTINECCDA.[id number] 04/05/2020 10:08:00 AM EDT [facility] -0400 Name Value Range Interpretation Description Data Sup porting Code Source(s) Document(s ) UNK 4.2-5.8 Above high normal <content [place] [facility] styleCode="Bold Medical ">Hemoglobin Center A1C </content>7.2 % H<content styleCode="Ital ics"> (4.2-5.8 %)</content> UNK >= 1.0 <content [facility] styleCode="Bold Medical ">AG Ratio Center </content>1.2 <content styleCode="Ital ics"> (>= 1.0 )</content> UNK 2.3-3.5 <content [facility] styleCode="Bold Medical ">Globulin Center </content>3.1 G/DL<content styleCode="Ital ics"> (2.3-3.5 G/DL)</content> Protein 6.3-8.2 <content [facility] [Mass/volum styleCode="Bold Medical e] in Serum ">Total Protein Center or Plasma </content>6.7 G/DL<content styleCode="Ital ics"> (6.3-8.2 G/DL)</content> ID Date Data Source [id number] 04/05/2020 10:08:00 AM EDT [facility] Name Value Range Interpretation Description Data Sup porting Code Source(s) Document(s ) Sodium 137-145 <content Saint [Moles/volume] in styleCode="Bold"> Jeanette phs Serum or Plasma Sodium Medical </content>140 Center MEQ/L<content styleCode="Italic s"> (137-145 MEQ/L)</content> Potassium 3.5-5.3 <content [facility] [Moles/volume] in styleCode="Bold"> Jeanette phs Serum or Plasma Potassium Medical </content>3.7 Center MEQ/L<content styleCode="Italic s"> (3.5-5.3 MEQ/L)</content> Chloride 98-107 <content [facility] [Moles/volume] in styleCode="Bold"> Jeanette phs Serum or Plasma Chloride Medical </content>106 Center [...] s"> (3.5-5.0 G/DL)</content> ID Date Data Source [id number] 03/21/2020 09:48:00 AM EDT [facility] Name Value Range Interpretation Code Description Data Diann rce(s) Supporting Document(s ) SARS-CoV-2 [facility] , RNA This lab was ordered by CELESTINE KEEN MD and reported by [facility]. ID Date Data Source [id number] 03/14/2020 10:35:00 AM EDT [facility] Name Value Range Interpretation Code Description Data Diann rce(s) Supporting Document(s ) SARS-CoV-2 [facility] , RNA This lab was ordered by CELESTINE KEEN MD and reported by [employer]. ID Date Data Source [id number] 03/07/2020 12:27:00 PM EDT [facility] Name Value Range Interpretation Code Description Data Diann rce(s) Supporting Document(s ) SARS-CoV-2 [facility] , RNA This lab was ordered by CELESTINE KEEN MD and reported by [employer]. ID Date Data Source [id number] 02/29/2020 12:19:00 PM EDT [facility] Name Value Range Interpretation Code Description Data Diann rce(s) Supporting Document(s ) SARS-CoV-2 [facility] , RNA This lab was ordered by CELESTINE KEEN MD and reported by [employer]. ID Date Data Source [id number] 02/22/2020 07:37:00 AM EDT [facility] Name Value Range Interpretation Code Description Data Diann rce(s) Supporting Document(s ) SARS-CoV-2 [facility] , RNA This lab was ordered by CELESTINE KEEN MD and reported by [employer]. ID Date Data Source [id number] 02/15/2020 10:54:00 AM EDT [facility] Name Value Range Interpretation Code Description Data Diann rce(s) Supporting Document(s ) SARS-CoV-2 [facility] , RNA This lab was ordered by CELESTINE KEEN MD and reported by [employer]. ID Date Data Source [id number] 02/08/2020 07:44:00 AM EDT [facility] Name Value Range Interpretation Code Description Data Diann rce(s) Supporting Document(s ) SARS-CoV-2 [facility] , RNA This lab was ordered by [employer] and reported by [employer]. ID Date Data Source [id number] 02/01/2020 06:50:00 PM EDT [facility] Name Value Range Interpretation Code Description Data Diann rce(s) Supporting Document(s ) SARS-CoV-2 [facility] , RNA This lab was ordered by [employer] and reported by [employer]. ID Date Data Source [id number] 02/01/2020 06:50:00 PM EDT [facility] Name Value Range Interpretation Code Description Data Diann rce(s) Supporting Document(s ) SARS-CoV-2 [facility] , RNA This lab was ordered by [facility] and reported by [employer]. ID Date Data Source [id number] 01/27/2020 04:12:00 PM EDT [facility] Name Value Range Interpretation Code Description Data Diann rce(s) Supporting Document(s ) SARS-CoV-2 [facility] , RNA This lab was ordered by [facility] and reported by [employer]. ID Date Data Source [id number] 01/25/2020 05:36:00 PM EDT [facility] Name Value Range Interpretation Code Description Data Diann rce(s) Supporting Document(s ) SARS-CoV-2 [facility] , RNA This lab was ordered by [facility] and reported by [employer]. ID Date Data Source [id number] 04/24/2019 11:33:00 AM EDT [facility] 0 Name Value Range Interpretation Description Data Sup porting Code Source(s) Document(s ) Glucose NEGATIVE <content Saint [Mass/volume] styleCode="Julio Luke in Urine by d">Urine Medical Test strip Glucose Center </content>NEGA TIVE MG/DL<content styleCode="Dominique lics"> (NEGATIVE MG/DL)</conten t> Color of Urine YELLOW <content Saint styleCode="Julio Vaughans d">Color, Medical Urine Center </content>YELL OW <content styleCode="Dominique lics"> (YELLOW )</content> UNK CLEAR <content Saint styleCode="Julio Vaughans d">Urine Medical Clarity Center </content>UDAY R <content styleCode="Dominique lics"> (CLEAR )</content> Ketones NEGATIVE <content [facility] [Mass/volume] styleCode="Julio Vaughans in Urine by d">Urine Medical Test strip Ketone Center </content>NEGA TIVE MG/DL<content styleCode="Dominique lics"> (NEGATIVE MG/DL)</conten t> Specific 1.015-1.02 <content [facility] gravity of 5 styleCode="Julio Luke Urine by Test d">Urine Medical strip Specific Center [place] </content>1.01 5 <content styleCode="Dominique lics"> (1.015-1.025 )</content> UNK NEGATIVE <content Saint styleCode="Julio Marly d">Urine Medical Bilirubin Center </content>NEGA TIVE <content styleCode="Dominique lics"> (NEGATIVE )</content> pH of Urine by 4.5-8.0 <content Saint Test strip styleCode="Julio Marly d">Urine pH Medical </content>6.5 Center <content styleCode="Dominique lics"> (4.5-8.0 )</content> Urobilinogen 0.2-1.0 <content [facility] [Units/volume] styleCode="Julio Vaughans in Urine by d">Urine Medical Test strip Urobilinogen Center </content>0.2 MG/DL<content styleCode="Dominique lics"> (0.2-1.0 MG/DL)</conten t> Hemoglobin NEGATIVE <content [facility] [Presence] in styleCode="Julio Vaughans Urine by Test d">Urine Blood Medical strip </content>NEGA Center TIVE <content styleCode="Dominique lics"> (NEGATIVE )</content> Protein NEGATIVE <content [facility] [Mass/volume] styleCode="Julio Vaughans in Urine by d">Urine Medical Test strip Protein Center </content>NEGA TIVE MG/DL<content styleCode="Dominique lics"> (NEGATIVE MG/DL)</conten t> Leukocyte NEGATIVE <content [facility] esterase styleCode="Julio Vaughans [Presence] in d">Urine Medical Urine by Test Leukocyte Center strip </content>NEGA TIVE <content styleCode="Dominique lics"> (NEGATIVE )</content> Nitrite NEGATIVE <content [facility] [Presence] in styleCode="Julio Marly Urine by Test d">Urine Medical strip Nitrite Center </content>NEGA TIVE <content styleCode="Dominique lics"> (NEGATIVE )</content> ID Date Data Source Liver 04/24/2019 10:17:00 AM EDT [facility] Profile.[id number] Name Value Range Interpretation Description Data Sup [...] s"> (0.0-0.3 MG/DL)</content> ID Date Data Source HematologyRou.[id number] 04/24/2019 10:17:00 AM JERRODT Leroy nt [facility] 0400 Name Value Range Interpretation Description Data Sup porting Code Source(s) Document(s ) Leukocytes 4.4-11.0 <content Saint [#/volume] in styleCode="Bold [facility] Blood by ">White Blood Medical Automated count Cell Count Center </content>8.71 KCUMM<content styleCode="Ital ics"> (4.4-11.0 KCUMM)</content > Hematocrit 36.0-46. <content Saint [Volume 0 styleCode="Bold Marly Fraction] of ">Hematocrit Medical Blood by </content>44.9 [...] ics"> (0 /100)</content> ID Date Data Source GFR(Creatinine).[id number] 04/24/2019 10:17:00 AM EDT [facility] 0-0400 Name Value Range Interpretation Code Description Data Diann rce(s) Supporting Document(s ) UNK > 60 <content Saint Marly styleCode="Bold"> Medical Cent er EGFR </content>110 GFR<content styleCode="Italic s"> (> 60 GFR)</content> ID Date Data Source CHMROUTINECCDA.[id number] 04/24/2019 10:17:00 AM EDT [facility] -0400 Name Value Range Interpretation Description Data Sup porting Code Source(s) Document(s ) Lipase 23-300 <content [facility] [Enzymatic styleCode="Bold Medical activity/vo ">Lipase Center lume] in </content>93 Serum or IU/L<content Plasma styleCode="Ital ics"> (23-300 IU/L)</content> ID Date Data Source [facility].[id number] 04/24/2019 10:17:00 AM EDT [facility] Name Value Range Interpretation Description Data Sup porting Code Source(s) Document(s ) Sodium 137-145 <content Saint [Moles/volume] in styleCode="Bold"> Jeanette phs Serum or Plasma Sodium Medical </content>142 Center MEQ/L<content styleCode="Italic s"> (137-145 MEQ/L)</content> Carbon dioxide, 22-30 Above high <content Saint total normal styleCode="Bold"> Marly [Moles/volume] in Carbon Dioxide Medical Serum or Plasma </content>32 Center MEQ/L H<content styleCode="Italic s"> (22-30 MEQ/L)</content> Potassium 3.5-5.3 Below low <content [facility] [Moles/volume] in normal styleCode="Bold"> Jeanette phs Serum or Plasma Potassium Medical </content>3.3 Center MEQ/L L<content styleCode="Italic s"> (3.5-5.3 MEQ/L)</content> Chloride 98-107 <content [facility] [Moles/volume] in styleCode="Bold"> Jeanette [facility] Serum or Plasma Chloride Medical </content>100 Center [...] [facility] ([place]eroy nt Details 12:00:00 AM EDT [facility]) Smoking 04/10/2020 Unknown if completed Unknown if ever [facility] ( [facility] 12:00:00 AM EDT ever smoked smoked [facility]) Caffeine Use 04/10/2020 completed [facility] ([place] nt Details 12:00:00 AM EDT [facility]) Smoking 08/10/2019 Denies Ever completed Denies Ever [place] [facility] 06:17:00 PM EST Smoked Smoked Medical C enter Smoking 08/10/2019 Denies Ever completed Denies Ever [place] [facility] 06:17:00 PM EST Smoked Smoked Medical C enter Smoking 08/10/2019 Denies Ever completed Denies Ever [place] [facility] 05:05:00 PM EST Smoked Smoked Medical C enter Smoking 04/24/2019 Denies Ever completed Denies Ever [place] [facility] 10:00:00 AM EDT Smoked Smoked Medical C enter Smoking 04/24/2019 Denies Ever completed Denies Ever [place] [facility] 09:30:00 AM EDT Smoked Smoked Medical C enter Smoking 04/24/2019 Denies Ever completed Denies Ever [place] [facility] 09:18:00 AM EDT Smoked Smoked Medical C enter Vital Signs ID Date Data Source UNK Name Value Range Interpretation Code Description Data Source(s) Oxygen saturation 98 % 98 % [facility] ([facility] in Arterial blood [facility] by Pulse oximetry Center) Body mass index 35.84 kg/m2 Overweight 35.84 kg/m2 [facility] ([facility] (BMI) [Ratio] [facility]) Respiratory rate 18 /min 18 /min [facility] Body temperature 36.17 Janet 36.17 Janet [facility]) Heart rate 97 /min 97 /min [facility] ([facility]) Diastolic blood 84 mm[Hg] 84 mm[Hg] [facility] ( [facility] pressure [facility]) Systolic blood 132 mm[Hg] 132 mm[Hg] [facility] (S aint pressure [facility]) Body weight 94.710 kg 94.710 kg [facility] (Lalita t [facility]) Body height 162.56 cm 162.56 cm [facility]) Oxygen saturation 96 % 96 % [facility] ([facility] in Arterial blood [facility] by Pulse oximetry Center) Body mass index 35.36 kg/m2 Overweight 35.36 kg/m2 [facility] ([facility] (BMI) [Ratio] [facility]) Respiratory rate 18 /min 18 /min [facility] ([facility]) Body temperature 36.17 Janet 36.17 Janet [facility] ([facility]) Heart rate 90 /min 90 /min [facility] ([facility]) Diastolic blood 80 mm[Hg] 80 mm[Hg] [facility] ( [facility]) Systolic blood 120 mm[Hg] 120 mm[Hg] [facility] ([facility]) Body weight 93.440 kg 93.440 kg [facility] ([facility]) Body height 162.56 cm 162.56 cm [facility] ([facility]) Systolic blood 122 mm[Hg] 122 mm[Hg] [facility]EXT[facility] (S nt pressure [facility]) Heart rate 82 /min 82 /min [facility] ([facility]) Diastolic blood 80 mm[Hg] 80 mm[Hg] [facility] ( [facility] pressure [facility] [place]) Systolic blood 118 mm[Hg] 118 mm[Hg] [facility] (S nt [facility] [place]) Heart rate 82 /min 82 /min [facility] ([facility]) Diastolic blood 80 mm[Hg] 80 mm[Hg] [facility]EXT[facility] ( [facility] pressure Marly Medica [facility]) Systolic blood 114 mm[Hg] 114 mm[Hg] [facility] (S [facility]) Heart rate 81 /min 81 /min [facility] ([facility]) Diastolic blood 87 mm[Hg] 87 mm[Hg] [facility] ( [facility] pressure [facility] [place]) Oxygen saturation 96 % 96 % [facility] ([facility] in Arterial blood [facility] by Pulse oximetry Center) Body mass index 35.98 kg/m2 Overweight 35.98 kg/m2 [facility] ([facility] (BMI) [Ratio] [facility]) Respiratory rate 20 /min 20 /min [facility] ([facility]) Body temperature 36.94 Janet 36.94 Janet [facility]) Heart rate 95 /min 95 /min [facility] ([facility]) Diastolic blood 68 mm[Hg] 68 mm[Hg] [facility]EXT[facility] ( [facility] pressure [facility]) Systolic blood 117 mm[Hg] 117 mm[Hg] [facility] pressure [facility]) Body weight 95.073 kg 95.073 kg [facility]) Body height 162.56 cm 162.56 cm [facility] ([facility]) Oxygen saturation 97 % 97 % [facility] ([facility] Arterial blood [facility] by Pulse oximetry Center) Body mass index 34.50 kg/m2 Overweight 34.50 kg/m2 [facility] ([facility] (BMI) [Ratio] [facility]) Respiratory rate 18 /min 18 /min [facility] ([facility]) Body temperature 36.44 Janet 36.44 Janet [facility] ([facility]) Heart rate 84 /min 84 /min [facility] ([facility]) Diastolic blood 74 mm[Hg] 74 mm[Hg] [facility] ( [facility] pressure [facility]) Systolic blood 114 mm[Hg] 114 mm[Hg] [facility] (S [facility]) Body weight 91.172 kg 91.172 kg [facility] ([facility]) Body height 162.56 cm 162.56 cm [facility] ([facility]) Body weight 81.243251 kg 81.035273 kg [facility] Body temperature 36.860210 36.321594 Janet [facility] Respiratory rate 18 /min 18 /min [facility] Oxygen saturation 99 % 99 % [facility] by Pulse oximetry Heart rate 94 /min 94 /min [facility] Body height 160.593992 160.213963 cm [facility] Medical [place] Diastolic blood 77 mm[Hg] 77 mm[Hg] [facility] pressure Medical [place] Systolic blood 147 mm[Hg] 147 mm[Hg] [facility] Body mass index 31.8 kg/m2 31.8 kg/m2 [facility] (BMI) [Ratio] Medical José Miguel ter Oxygen saturation 96 % 96 % [facility] ([facility] in Arterial blood [facility] by Pulse oximetry Center) Body mass index 33.64 kg/m2 Overweight 33.64 kg/m2 [facility] ([facility] (BMI) [Ratio] [facility]) Respiratory rate 19 /min 19 /min [facility] ([facility]) Body temperature 36.22 Janet 36.22 Janet [facility] ([facility]) Heart rate 95 /min 95 /min [facility] ([facility]) Diastolic blood 65 mm[Hg] 65 mm[Hg] [facility] ( [facility] pressure [facility]) Systolic blood 100 mm[Hg] 100 mm[Hg] [facility] ([facility]) Body weight 88.904 kg 88.904 kg [facility] ([facility]) Body height 162.56 cm 162.56 cm [facility] ([facility]) Body temperature 36.446298 36.750105 Janet [facility] Respiratory rate 20 /min 20 /min [facility] Heart rate 72 /min 72 /min [facility] Diastolic blood 62 mm[Hg] 62 mm[Hg] [facility] Systolic blood 104 mm[Hg] 104 mm[Hg] [facility] Body weight 80.484668 kg 80.164862 kg [facility] Body temperature 37.629686 37.294993 Janet [facility] Respiratory rate 20 /min 20 /min [facility] Oxygen saturation 98 % 98 % [facility] osep in Arterial blood [facility] by Pulse oximetry Heart rate 116 /min 116 /min [facility] Body height 154.020316 154.869881 cm [facility] Diastolic blood 92 mm[Hg] 92 mm[Hg] [facility] [place] Systolic blood 140 mm[Hg] 140 mm[Hg] [facility] Body mass index 33.3 kg/m2 33.3 kg/m2 [facility] (BMI) [Ratio] Medical José Miguel ter Patient Treatment Plan of Care Planned Activity Planned Date Details Description Data Source (s) Ibuprofen 400 MG Oral 05/29/2020 12:00:00 [facility] ([facility]) Ibuprofen 400 MG Oral 05/29/2020 12:00:00 [facility] ([facility] Tablet [facility]) Ibuprofen 400 MG Oral 05/25/2020 12:00:00 [facility] ([facility] Tablet [facility]) Meclizine Hydrochloride 25 05/24/2020 12:00:00 [facility] ([facility] Oral Tablet [facility]) Aspirin 81 MG Delayed 05/24/2020 12:00:00 [facility] ([facility] Release Oral Tablet [facility]) Chlorthalidone 25 MG Oral 05/24/2020 12:00:00 [facility] ([facility]) Lisinopril 10 MG Oral 05/24/2020 12:00:00 [facility] ([facility]) Shingrix (PF) 50 mcg/0.5 04/10/2020 12:00:00 [facility] ([facility] mL intramuscular [facility] ical suspension, kit Center) Meclizine Hydrochloride 25 04/05/2020 12:00:00 [facility] ([facility] Oral Tablet [facility]) Chlorthalidone 25 MG Oral 04/05/2020 12:00:00 [facility] ([facility] Tablet [facility]) Lisinopril 10 MG Oral 04/05/2020 12:00:00 [facility] ([facility] Tablet [facility]) Chlorthalidone 25 MG Oral 04/27/2019 12:00:00 [facility] ([facility]) Enalapril Maleate 10 MG 04/27/2019 12:00:00 [facility] ([facility] Oral Tablet [facility]) Meclizine Hydrochloride 04/27/2019 12:00:00 [facility] ([facility] 12.5 MG Oral Tablet [facility]) Meclizine Hydrochloride 01/21/2019 12:00:00 [facility] ([facility] 12.5 MG Oral Tablet [facility]) Aspirin 81 MG Delayed 08/27/2018 12:00:00 [facility] ([facility] Release Oral Tablet [facility]) Chlorthalidone 25 MG Oral 08/27/2018 12:00:00 [facility] ([facility]) Enalapril Maleate 10 MG 08/27/2018 12:00:00 [facility] ([facility]) Ibuprofen 400 MG Oral 03/30/2018 12:00:00 [facility] ([facility])
[2020-06-16] MEDS ORDERED: BUPIVACAINE HCL/PF 0.25% (2.5MG/ML) 10 ML VIAL ONE (09:18)
[2020-06-16] MEDS ORDERED: ROPIVACAINE HCL 0.5% 30ML VIAL ONE (09:36)
[2020-06-16] MEDS ORDERED: MIDAZOLAM HCL 2 MG/2 ML SINGLE DOSE VIAL ONE ×3 (09:36→12:22)
[2020-06-16] MEDS ORDERED: PROPOFOL 20 ML ONE (09:46)
[2020-06-16] MEDS ORDERED: SUCCINYLCHOLINE CHLORIDE 200 MG/10 ML SYRINGE ONE (09:47)
--- NOTE | 2020-06-16 11:11 | HP ---
History & Physical Update - History History: No Change - Physical Physical: No Change - Assessment Assessment: No Change - Plan Plan: No Change
[2020-06-16] MEDS ORDERED: TRANEXAMIC ACID 1000 MG/10 ML VIAL ONE (12:07)
[2020-06-16] MEDS ORDERED: oxyCODONE HCL 5 MG TABLET PO ONE (13:23)
[2020-06-16] MEDS ORDERED: IBUPROFEN 400 MG TABLET (FP) PO PRN (13:23)
[2020-06-16] MEDS ORDERED: ONDANSETRON 4 MG/2 ML VIAL IVPUSH PRN (13:29)
[2020-06-16] MEDS ORDERED: LACTATED RINGERS SOLUTION 1,000 ML IV SCH (13:30)
[2020-06-16] MEDS ORDERED: oxyCODONE HCL 5 MG TABLET ONE (14:20)
[2020-06-16 16:14] VITALS: TEMP 97.8
[2020-06-16 16:16] VITALS: BP 128/65; PULSE 84
--- NOTE | 2020-06-16 18:04 | OPR ---
Procedure: Right Shoulder- 1. Diagnostic arthroscopy. 2. Arthroscopic debridement of glenohumeral joint (19319). 3. Arthroscopic subacromial decompression (25744). 4. Arthroscopic-assisted biceps tenodesis-subpectoral (44179). 5. Distal clavicle resection. Preoperative Diagnoses: 1. Partial rotator cuff tear-Supraspinatus. 2. Biceps tendon tendonitis. 3. Glenohumeral synovitis. 4. AC joint arthrosis. 5. Subacromial bursitis and adhesions. Postoperative Diagnoses: 1. Rotator cuff fraying-Supraspinatus. 2. Biceps tendon tenosynovitis. 3. Labral degeneration and fraying; SLAP tear. 4. Glenohumeral synovitis. 5. Subacromial bursitis and adhesions. 6. AC joint arthrosis Surgeon: Osbaldo Jung DO Assistants: Eusebio Daniels DO Anesthesia: General anesthesia, IV regional with interscalene nerve block. Estimated Blood Loss: Minimal Drains: None Total IV Fluids: Per anesthesia record Specimens: None Implants: [employer] 1.9mm SutureFix [place], double loaded with suture Complications: None Disposition: PACU Condition: Hemodynamically stable Indications: So Delatorre presented to us with right shoulder pain that failed conservative measures. Her symptoms, signs, and imaging were consistent with the above noted diagnoses. She was an appropriate candidate for surgery due her young age, ongoing symptoms and dysfunction despite conservative measures. She ultimately elected to proceed with surgical intervention after discussion of the risks, benefits, alternatives. We discussed risks including but not limited to, bleeding, pain, infection, scarring, damage to neurovascular structures, blood clots, pulmonary embolus, need for additional surgery, incomplete relief of pain, and incomplete return of function. She expressed understanding and wished to proceed. She underwent preoperative medical evaluation, clearance and optimization prior to surgery. Procedure Details: She was identified in the preoperative area. The right shoulder was marked as the operative site and consent was completed and confirmed. An interscalene block was performed by the anesthesia team in the preoperative holding area. She was later transferred to the operating room and placed in supine position the operating room. General anesthesia was induced without difficulty. She was repositioned into beach chair with all bony prominences appropriately padded. The neck was in neutral alignment. A surgical time-out was performed identifying the correct patient, procedure, and site. Antibiotics were given within 1 hour prior to surgical incision. The upper extremity was prepped and draped in standard sterile fashion. Examination under anesthesia: Passive range of motion of the right shoulder showed forward elevation of 170, abduction 100, external rotation at side 30, SABER 80, SABIR 30. This was compared to her contralateral shoulder which shows forward elevation of 170, abduction 100 external rotation at side 60, SABER 90, SABIR 30, and internal rotation to her mid thoracic spine. Diagnostic arthroscopy: We began the procedure with the standard posterolateral portal, entered the glenohumeral joint, and an anterior portal was made within the rotator cuff interval under direct visualization with the assistance of a spinal needle. A probe was used to assist with diagnostic arthroscopy and we visualized from both posteriorly and anteriorly. Evaluation of the glenohumeral joint showed mild to moderate synovitis anteriorly and superiorly. The superior labrum had degeneration and a type II tear that was debrided back to a stable base. The anterior labrum was probed and found to be frayed. The posterior labrum was probed and found to be intact. There were no loose bodies in the inferior pouch. There was no HAGL lesion. The biceps tendon showed hyperemia. The rotator cuff interval was scarred. The axillary recess was empty. The subscapularis was probed and found to be intact. The articular surface of the supraspinatus was found to have mild fraying. The articular surface of the infraspinatus and teres minor tendon were intact. The glenoid and humeral head showed no significant chondral defects. Evaluation of the subacromial space showed significant bursitis and adhesions. There was a significant acromial spur anteriorly. There was fraying of the CA ligament. The AC joint was narrowed with arthritic changes and sclerosis. The rotator cuff was found to be intact. Arthroscopic debridement of the glenohumeral joint: We used a combination of the arthroscopic motorized shaver and radiofrequency device to perform a debridement inside the glenohumeral joint anteriorly and superiorly. The hyperemia of the joint and joint capsule was debrided. Synovitic fronds were thermally ablated. Labral and rotator cuff fraying and degeneration was also resected and debrided to a stable edge. We used the radiofrequency device to ablate and remove the scar tissue starting with the rotator cuff interval. We stayed lateral to the labrum, released the scar to the lateral surface of the coracoid, and then proceeded more laterally across the rotator interval, ablating the scar tissue all the way to the biceps edwin region. The subscapularis tendon was identified and carefully protected. The biceps tendon was tenotomized as it inserted into the superior labral complex and the remaining portion of the biceps tendon was allowed to retract into the bicipital groove for later tenodesis. Arthroscopic-assisted biceps tenodesis: We made a 2 cm incision along Perry's lines in the axillary fold. Sharp dissection was carried out down to the level of the pectoralis major. The plane between the pectoralis major and the short head of biceps tendon was developed bluntly down to the level of the humeral bone, where we identified the long head of biceps tendon and delivered it retrograde out of the wound. The underlying soft tissue was resected and the bone was frayed with a 1/4-inch osteotome. We then selected a 1.9 SutureFix anchor and placed the anchor high within the bicipital groove underneath the pectoralis major tendon. The sutures were then passed just proximal to the musculotendinous junction of the long head of biceps in an alternating simple versus lasso loop configuration. Tying these sutures down tenodesed the tendon onto the underlying frayed humeral bone. We used an arthroscopic knot pusher to get excellent knot fixation, and then arthroscopic decorative greens cutter to cut the remaining length of the suture. The remaining length of the biceps tendon was resected. We confirmed our arthroscopic knots and position of the biceps tendon underneath the pectoralis major with the arthroscope. We thoroughly irrigated the wound. Arthroscopic subacromial decompression: The subacromial space was entered from posteriorly. A separate anterior-lateral portal and posterior-lateral portal were made for additional instrumentation and visualization. We then visualized the rotator cuff pattern as noted above, and performed our subacromial decompression in a systematic fashion from anterior to posterior and from lateral to medial, removing the bursal tissue carefully. This was done with a radiofrequency device and motorized shaver. The undersurface of the acromion was skeletonized and gently debrided to a flat smooth undersurface. There was an anterior-inferior spur that was resected with a motorized bur. Arthroscopic AC joint resection: The AC joint space was narrowed, with arthritic changes and sclerosis. We used the anterior and lateral portals for instrumentation. Soft tissue within the AC joint was removed with a motorized shaver and radiofrequency device. We resected the joint by using a barrel nabeel 4 mm in diameter. 2-3 mm of the medial aspect of the acromion was burred to a flat surface and about 6-7 mm of the lateral end of the clavicle was similarly resected with the nabeel. The surrounding osteophytes were also resected. The AC joint was stable upon completion of the distal clavicle excision. Approximately 1 cm of space was present between the acromion and clavicle after the resection. We thoroughly irrigated the subacromial space and axillary incision and we removed the arthroscopic equipment. Wound closure: The arthroscopic portal incisions were closed with 3-0 nylon sutures. The axillary incision was closed with 2-0 Vicryl, 3-0 Monocryl subcuticular stitch, and Dermabond skin glue. The shoulder was sterilely dressed and placed in a shoulder immobilizer. Post-operative Details: I spoke with the family regarding the operation after surgery. Postoperative rehabilitation: Arthroscopic biceps tenodesis protocol. She will remain in a shoulder immobilizer for 4-6 weeks. Early passive range of motion okay with no limits and advance as tolerated. Attestation for supply chain assistant: Dr. Eusebio Daniels acted as the supply chain assistant. There was no qualified resident or physician pediatric physician assistant available to do so.
--- NOTE | 2020-06-20 13:49 | PATH ---
Surgical Pathology Report Patient Name: GRETA GONZALES Med. Rec. #: [id number] /Age/Gender: 1960 (Age: 59) / F Account: [id number] Location: [facility] AMBULATORY Taken: 06/16/2020 Received: 06/16/2020 Reported: 06/20/2020 Physicians: Osbaldo Jung DO Specimen(s) Received RIGHT SHOULDER SHAVINGS Clinical History Right shoulder biceps tendinosis, subacromial decompression Final Diagnosis SHOULDER SHAVINGS, RIGHT, ARTHROSCOPY, BICEP TENODESIS, SUBACROMIAL DECOMPRESSION: FRAGMENTS OF BENIGN BONE, CARTILAGE, DENSE FIBROCONNECTIVE TISSUE, ADIPOSE TISSUE, AND SKELETAL MUSCLE. Electronically Signed Lisa Alvarado M.D. Gross Description Received in formalin labeled "right shoulder shavings," is a 2.5 x 1.6 x 0.3 cm aggregate of coffey-yellow soft tissue fragments. The formalin is filtered and the specimen is entirely submitted in one cassette. 06/19/2020 [facility]06/19/2020
== END 2020-06-16 14:35 | disposition home or self-care (01) ==
LOC: FASU 07:49
PROVIDERS: ATTEND Orthopaedic Surgery
PROC: 0RBJ4ZZ Excision of Right Shoulder Joint, Percutaneous Endoscopic Approach (ICD-10-PCS; 2020-06-16)
PROC: 0LS30ZZ Reposition Right Upper Arm Tendon, Open Approach (ICD-10-PCS; 2020-06-16)
PROC: 0PB94ZZ Excision of Right Clavicle, Percutaneous Endoscopic Approach (ICD-10-PCS; principal; 2020-06-16 11:33)
PROC: 0RNJ4ZZ Release Right Shoulder Joint, Percutaneous Endoscopic Approach (ICD-10-PCS; 2020-06-16 11:33)
DX: M75.111 Incomplete rotator cuff tear or rupture of right shoulder, not specified as traumatic (principal); M75.21 Bicipital tendinitis, right shoulder; M65.811 Other synovitis and tenosynovitis, right shoulder; M19.011 Primary osteoarthritis, right shoulder; M75.51 Bursitis of right shoulder
CPT/HCPCS: 88304-TC; 94760